=== PATIENT | female | born 1980 | race Two or more races ===

== ENCOUNTER 2019-04-06 16:37 | Inpatient (IN) | payer SELFPAY ==
[~2019-04-06] VITALS: Ht 162.6 cm; Wt 78.0 kg
[2019-04-06] MEDS ORDERED: SODIUM CHLORIDE 0.9% 1,000 ML IVB ONE (16:57)
[2019-04-06] MEDS ORDERED: ONDANSETRON HCL 4 MG/2 ML VIAL IV ONE (17:00)
[2019-04-06 17:20] LABS: Basophils # (auto) 0.1 uL; Eosinophils # (auto) 0 uL; Lymphocytes # (auto) 2.6 uL; White Blood Cell 14.8 10^3/uL (4.4-10.8)
[2019-04-06 17:21] LABS: Basophils % (auto) 0.7 % (0.0-2.0); Hematocrit 41.9 % (36.0-46.0); Hemoglobin 13.9 g/dL (12.2-16.2); Lymphocytes % (auto) 17.7 % (10.0-50.0); Mean Corpuscular Hemoglobin 28.5 pg (28.0-32.0); Mean Corpuscular Hgb Conc. 33.2 g/dL (32.0-36.0); Monocytes # (auto) 0.7 uL; Monocytes % (auto) 4.8 % (0.0-12.0); Neutrophils # (auto) 11.4 uL; Neutrophils % (auto) 76.8 % (37.0-80.0); Platelet Count (auto) 525 10^3/uL (140-450); Red Blood Cells 4.87 10^6/uL (4.0-5.20); Red Cell Distribution Width 14.3 % (11.8-14.3)
[2019-04-06 17:31] LABS: Albumin 3.9 g/dL (3.4-5.0); Calcium 9.2 mg/dL (8.5-10.1); Potassium 3.1 mmol/L (3.5-5.1)
[2019-04-06 17:33] LABS: BUN/Creatinine Ratio 22.4; Bilirubin, Total 1.1 mg/dL (0.2-1.0); Total Protein 8.1 g/dL (6.4-8.2)
[2019-04-06] MEDS ORDERED: POTASSIUM CHL 20MEQ/100ML 100 ML IV ONE (19:45)
[2019-04-06] MEDS ORDERED: DEXTROSE (50%) 50ML SYRG IV PRN (21:45)
[2019-04-06] MEDS ORDERED: cefTRIAXone 1GM/50ML D5W 50 ML IV ONE (21:45)
[2019-04-06] MEDS ORDERED: ACETAMINOPHEN 325 MG TAB PO PRN (21:45)
[2019-04-06] MEDS ORDERED: ONDANSETRON HCL 4 MG/2 ML VIAL IV PRN (21:45)
[2019-04-06] MEDS ORDERED: TEMAZEPAM 15 MG CAP PO PRN (21:45)
[2019-04-06] MEDS: HYDROcodone-ACET 5/325MG TAB PO PRN (22:24)
[2019-04-06] MEDS: PANTOPRAZOLE 40 MG TAB PO SCH (22:26)
[2019-04-06 23:41] LABS: Urine Bacteria MOD /hpf (None Seen); Urine Blood Negative /uL (Negative); Urine Mucus FEW (None Seen); Urine Specific Gravity 1.021 (1.001-1.035); Urine WBC 4 /hpf (0 - 5)
[2019-04-06 23:56] VITALS: BP 165/97
[2019-04-07] VITALS: BP 165/97
[2019-04-07] MEDS: ACCU-CHEK COMFORT CURVE STRIP VI SCH ×3 (00:18→11:50)
[2019-04-07] MEDS: InsuLIN REG 1unit/0.01ml Soln (100units/ml) SC SCH ×3 (00:20→11:50)
[2019-04-07] MEDS ORDERED: METF-370 PO (00:53)
[2019-04-07 04:30] VITALS: BP 103/64
[2019-04-07 05:59] LABS: Basophils # (auto) 0.1 uL; Basophils % (auto) 0.5 % (0.0-2.0); Calcium 8.4 mg/dL (8.5-10.1); Eosinophils # (auto) 0 uL; Eosinophils % (auto) 0.3 % (0.0-7.0); Hemoglobin 12.5 g/dL (12.2-16.2); Lymphocytes # (auto) 4.4 uL; Lymphocytes % (auto) 32.8 % (10.0-50.0); Mean Corpuscular Hemoglobin 29.2 pg (28.0-32.0); Mean Corpuscular Hgb Conc. 33.8 g/dL (32.0-36.0); Mean Corpuscular Volume 86.4 fL (80.0-100.0); Monocytes % (auto) 7.7 % (0.0-12.0); Neutrophils # (auto) 7.9 uL; Neutrophils % (auto) 58.7 % (37.0-80.0); Platelet Count (auto) 437 10^3/uL (140-450); Potassium 3.2 mmol/L (3.5-5.1); Red Blood Cells 4.28 10^6/uL (4.0-5.20); Red Cell Distribution Width 14.5 % (11.8-14.3); White Blood Cell 13.5 10^3/uL (4.4-10.8)
[2019-04-07 06:05] LABS: Albumin 3.2 g/dL (3.4-5.0); BUN/Creatinine Ratio 22.4; Bilirubin, Total 0.9 mg/dL (0.2-1.0); Total Protein 6.8 g/dL (6.4-8.2)
[2019-04-07] MEDS: HYDROcodone-ACET 5/325MG TAB PO PRN (08:55)
[2019-04-07 09:00] VITALS: BP 115/71
[2019-04-07] MEDS ORDERED: cefTRIAXone 1GM/50ML D5W 50 ML IV SCH (09:00)
[2019-04-07] MEDS ORDERED: POTASSIUM CHL 20 Meq TABLET PO ONE (10:45)
[2019-04-07] MEDS: PANTOPRAZOLE 40 MG TAB PO SCH (11:50)
[2019-04-07 13:00] VITALS: BP 117/78
[2019-04-07 17:00] VITALS: BP_SYST 125; BP_SYST 141; BP_DIAS 74; BP_DIAS 96
== END 2019-04-07 17:15 | disposition home or self-care (01) | DRG 638 ==
LOC: ER 16:44 → OVERFLOW 16:45 → EAST 23:31
PROVIDERS: ADMIT Nurse Practitioner; ATTEND Internal Medicine
DX: E11.65 Type 2 diabetes mellitus with hyperglycemia (principal); N39.0 Urinary tract infection, site not specified; E86.0 Dehydration; E66.9 Obesity, unspecified; E87.6 Hypokalemia; D72.829 Elevated white blood cell count, unspecified; D18.09 Hemangioma of other sites; Z83.3 Family history of diabetes mellitus; Z68.29 Body mass index [BMI] 29.0-29.9, adult; Z91.14 Patient's other noncompliance with medication regimen; Z79.899 Other long term (current) drug therapy
CPT/HCPCS: 36415; 74176; 76705; 80053; 81001; 81025; 82962; 83036; 83690; 83735; 85025; 87086; G0378; J0696; J1815; J2405; J3480

== ENCOUNTER 2019-04-12 14:18 | Emergency (ER) | payer SELFPAY ==
[~2019-04-12] VITALS: Ht 162.6 cm; Wt 70.3 kg
[~2019-04-12 14:18] MED LIST: METF-370 PO
[2019-04-12] MEDS ORDERED: SODIUM CHLORIDE 0.9% 1,000 ML IV ONE (15:00)
[2019-04-12] MEDS ORDERED: PROCHLORPERAZINE EDISYLATE 5 MG/ML 2ML VIAL IV ONE (17:15)
[2019-04-12 18:21] LABS: Basophils # (auto) 0.1 uL; Eosinophils # (auto) 0.1 uL; Eosinophils % (auto) 0.4 % (0.0-7.0); Hematocrit 37.9 % (36.0-46.0); Hemoglobin 12.6 g/dL (12.2-16.2); Lymphocytes # (auto) 4.5 uL; Lymphocytes % (auto) 32.3 % (10.0-50.0); Mean Corpuscular Hemoglobin 28.9 pg (28.0-32.0); Mean Corpuscular Hgb Conc. 33.2 g/dL (32.0-36.0); Monocytes # (auto) 0.9 uL; Monocytes % (auto) 6.1 % (0.0-12.0); Neutrophils # (auto) 8.4 uL; Neutrophils % (auto) 60.2 % (37.0-80.0); Nucleated Red Blood Cells % 0.1 %; Platelet Count (auto) 448 10^3/uL (140-450); Red Blood Cells 4.35 10^6/uL (4.0-5.20); Red Cell Distribution Width 14.4 % (11.8-14.3)
[2019-04-12 18:35] LABS: BUN/Creatinine Ratio 11.9; Calcium 8.8 mg/dL (8.5-10.1)
[2019-04-12] MEDS ORDERED: POTASSIUM EFFERVESENT TAB 25 MEQ PO ONE (19:15)
[2019-04-13 01:00] VITALS: BP 115/61
[2019-04-13] MEDS ORDERED: MAGNESIUM CITRATE SOLUTION 300 ML BTL PO ONE (01:45)
== END 2019-04-13 02:06 | disposition home or self-care (01) ==
LOC: ER 14:18
DX: K29.70 Gastritis, unspecified, without bleeding (principal); E11.9 Type 2 diabetes mellitus without complications
CPT/HCPCS: 36415; 74176; 80048; 83690; 84702; 85025; 96361; 96374; 99284; J0780; J7030

== ENCOUNTER 2019-05-03 16:40 | Inpatient (IN) | payer SELFPAY ==
[~2019-05-03] VITALS: Ht 160 cm; Wt 73.0 kg
[2019-05-03 18:04] LABS: Basophils # (auto) 0.1 uL; Basophils % (auto) 0.7 % (0.0-2.0); Eosinophils # (auto) 0 uL; Eosinophils % (auto) 0.1 % (0.0-7.0); Hematocrit 40.6 % (36.0-46.0); Hemoglobin 13.5 g/dL (12.2-16.2); Lymphocytes # (auto) 2.8 uL; Lymphocytes % (auto) 23.5 % (10.0-50.0); Mean Corpuscular Hemoglobin 28.9 pg (28.0-32.0); Mean Corpuscular Hgb Conc. 33.2 g/dL (32.0-36.0); Mean Corpuscular Volume 87.2 fL (80.0-100.0); Monocytes # (auto) 0.6 uL; Monocytes % (auto) 4.8 % (0.0-12.0); Neutrophils # (auto) 8.4 uL; Neutrophils % (auto) 70.9 % (37.0-80.0); Platelet Count (auto) 355 10^3/uL (140-450); Red Blood Cells 4.66 10^6/uL (4.0-5.20); Red Cell Distribution Width 13.9 % (11.8-14.3); White Blood Cell 11.8 10^3/uL (4.4-10.8)
[2019-05-03 18:35] LABS: Albumin 3.7 g/dL (3.4-5.0); BUN/Creatinine Ratio 12.9; Bilirubin, Total 0.8 mg/dL (0.2-1.0); Calcium 8.8 mg/dL (8.5-10.1); Total Protein 7.4 g/dL (6.4-8.2)
[2019-05-03 18:44] LABS: Potassium 2.9 mmol/L (3.5-5.1)
[2019-05-03] MEDS ORDERED: SODIUM CHLORIDE 0.9% 1,000 ML IVB ONE (19:24)
[2019-05-03] MEDS ORDERED: ONDANSETRON HCL 4 MG/2 ML VIAL IV ONE (19:30)
[2019-05-03 19:48] LABS: Magnesium 1.8 mg/dL (1.6-2.6)
[2019-05-03] MEDS ORDERED: MORPHINE SULF INJ 2 MG/ML SYRINGE 1ML IV ONE (22:00)
[2019-05-03] MEDS: PROMETHAZINE HCL 25 MG/ML 1ML IV PRN (22:20)
[2019-05-03] MEDS: POTASSIUM CHL 20MEQ/100ML 100 ML IV SCH (22:20)
[2019-05-03] MEDS ORDERED: ONDANSETRON HCL 4 MG/2 ML VIAL IV PRN (22:45)
[2019-05-03] MEDS ORDERED: ACETAMINOPHEN 500 MG TAB PO PRN (22:45)
[2019-05-03] MEDS ORDERED: DEXTROSE (50%) 50ML SYRG IV PRN (22:45)
[2019-05-03] MEDS: SODIUM CHLORIDE 0.9% 1,000 ML IV SCH (22:53)
[2019-05-03 23:50] VITALS: BP 155/92
--- NOTE | 2019-05-03 23:55 | NUR ---
[facility] admit from ER [facility]U SCHMITT admitted to [facility]. Patient oriented to INEZ TURNER,primary RN, unit, room, bed, and unit policies regarding patient care and visiting hours. Patient weighed by bedscale and encouraged to call if they need something. All questions and concerns addressed, patient verbalized understanding.
--- NOTE | 2019-05-04 | NUR ---
PATIENT AWARE OF NEEDING TO COLLECT URINE SPECIMEN WILL CALL IF NEEDING TO VOID
--- NOTE | 2019-05-04 00:09 | NUR ---
HOSPITALIST PAGED HOSPITALIST PAGED IN REGARDS TO ELEVATED BLOOD PRESSURE AT ADMISSION VITALS SET. NO PRN AVAILABLE BP:164/102, HR: 102BPM
[2019-05-04] MEDS: ACCU-CHEK COMFORT CURVE STRIP VI SCH ×5 (00:23→23:48)
[2019-05-04] MEDS: InsuLIN REG 1unit/0.01ml Soln (100units/ml) SC SCH ×5 (00:23→23:46)
[2019-05-04] MEDS: POTASSIUM CHL 20MEQ/100ML 100 ML IV SCH (00:23)
--- NOTE | 2019-05-04 00:59 | NUR ---
AWAITING CALL BACK FROM HOSPITALIST
--- NOTE | 2019-05-04 02:00 | NUR ---
HOSPITALIST RE PAGED R/T ELEVATED BP AWAITING CALL BACK
[2019-05-04] MEDS: MORPHINE SULF INJ 2 MG/ML SYRINGE 1ML IV PRN ×4 (02:05→21:04)
[2019-05-04] MEDS: PROMETHAZINE HCL 25 MG/ML 1ML IV PRN (02:10)
--- NOTE | 2019-05-04 04:00 | NUR ---
AM BP WNL; SEE VS SPREADSHEET
[2019-05-04 05:00] VITALS: BP 118/62
[2019-05-04 06:09] LABS: Basophils # (auto) 0.1 uL; Eosinophils # (auto) 0 uL; Eosinophils % (auto) 0.3 % (0.0-7.0); Hematocrit 35.6 % (36.0-46.0); Hemoglobin 11.9 g/dL (12.2-16.2); Lymphocytes # (auto) 4.3 uL; Lymphocytes % (auto) 49.3 % (10.0-50.0); Mean Corpuscular Hemoglobin 29.2 pg (28.0-32.0); Mean Corpuscular Hgb Conc. 33.4 g/dL (32.0-36.0); Mean Corpuscular Volume 87.5 fL (80.0-100.0); Monocytes # (auto) 0.6 uL; Monocytes % (auto) 7.1 % (0.0-12.0); Neutrophils # (auto) 3.7 uL; Neutrophils % (auto) 42.3 % (37.0-80.0); Nucleated Red Blood Cells % 0.1 %; Platelet Count (auto) 302 10^3/uL (140-450); Red Blood Cells 4.07 10^6/uL (4.0-5.20); Red Cell Distribution Width 14.1 % (11.8-14.3); White Blood Cell 8.8 10^3/uL (4.4-10.8)
[2019-05-04 06:23] LABS: BUN/Creatinine Ratio 13.6; Calcium 8.1 mg/dL (8.5-10.1); Potassium 3.1 mmol/L (3.5-5.1)
--- NOTE | 2019-05-04 07:52 | NUR ---
RECEIVED REPORT AND ASSUME CARE OF PT. PT RESTING IN BED. NO S/S ACUTE DISTRESS NOTED. UPDATE PT WITH POC.BED AT LOWEST POSITION. CALL LIGHT AND BELONGINGS WITHIN REACH. WILL CONT CONT TO MONITOR.
[2019-05-04 08:50] VITALS: BP 111/73
[2019-05-04] MEDS: PANTOPRAZOLE 40 MG/10 ML VIAL INJ IV SCH (10:06)
[2019-05-04] MEDS: SODIUM CHLORIDE 0.9% 1,000 ML IV SCH (10:08)
[2019-05-04] MEDS ORDERED: POTASSIUM CHLORIDE 60 MEQ, LIDOCAINE 1% (LOCAL ANESTH.) 6 ML in SODIUM CHL 0.9% 500 ML IV ONE (10:15)
[2019-05-04 10:40] LABS: Cholesterol 176 mg/dL (< 200); HDL Cholesterol 37 mg/dL (40-59); LDL Cholesterol 124 mg/dL (< 100); Triglycerides 109 mg/dL (< 150)
[2019-05-04] MEDS: MAGNESIUM SULFATE 1GM/100ML 100 ML IV SCH ×3 (12:03→16:02)
[2019-05-04 13:00] VITALS: BP 113/73
[2019-05-04 13:45] LABS: Urine Bacteria FEW /hpf (None Seen); Urine Blood Negative /uL (Negative); Urine Mucus FEW (None Seen); Urine Specific Gravity 1.007 (1.001-1.035); Urine WBC 14 /hpf (0 - 5)
[2019-05-04 14:00] LABS: Alcohol, Urine < 3.0 mg/dL (0-5); Amphetamine Screen, Urine NEGATIVE (NEGATIVE); Barbiturate Scree,Urine NEGATIVE (NEGATIVE); Benzodiazephine Screen, Urine NEGATIVE (NEGATIVE); Cannabinoid Screen, Urine NEGATIVE (NEGATIVE); Cocaine Screen, Urine NEGATIVE (NEGATIVE); Opiate Scree,Urine POSITIVE (NEGATIVE); Phencyclidine Screen, Urine NEGATIVE (NEGATIVE)
[2019-05-04 17:00] VITALS: BP 115/64
--- NOTE | 2019-05-04 19:20 | NUR ---
PT RESTING IN BED. NO S/S ACUTE DISTRESS NOTED. ENDORSED CARE TO NIGHT NURSE.
--- NOTE | 2019-05-04 20:00 | NUR ---
RECEIVE IN BED WATCHING TV NO VOICED COMPLAINTS
[2019-05-04 21:26] VITALS: BP 111/66
[2019-05-05] MEDS: SODIUM CHLORIDE 0.9% 1,000 ML IV SCH (01:09)
[2019-05-05] MEDS: MORPHINE SULF INJ 2 MG/ML SYRINGE 1ML IV PRN (04:19)
[2019-05-05 05:14] VITALS: BP 109/71
[2019-05-05] MEDS: InsuLIN REG 1unit/0.01ml Soln (100units/ml) SC SCH ×2 (06:00→12:00)
[2019-05-05] MEDS: ACCU-CHEK COMFORT CURVE STRIP VI SCH ×2 (06:00→12:59)
[2019-05-05 06:38] LABS: Calcium 8.1 mg/dL (8.5-10.1); Potassium 3.4 mmol/L (3.5-5.1)
[2019-05-05 06:42] LABS: BUN/Creatinine Ratio 9.1; Magnesium 2.1 mg/dL (1.6-2.6)
--- NOTE | 2019-05-05 07:35 | NUR ---
Opening Shift Note Assumed care of patient, awake and alert. No S/S of distress/SOB or pain. Instructed on POC and to call for assist PRN, will continue to monitor for changes. For patient safety the bed is locked, in its lowest position with 2 side rails up in position.
[2019-05-05 09:00] VITALS: BP 113/61
[2019-05-05] MEDS: PANTOPRAZOLE 40 MG/10 ML VIAL INJ IV SCH (10:36)
[2019-05-05] MEDS ORDERED: POTASSIUM CHL 20 Meq TABLET PO ONE (11:15)
[2019-05-05 13:00] VITALS: BP 152/82
[2019-05-05 14:34] VITALS: BP 152/82
[2019-05-05 16:49] VITALS: BP 130/78
== END 2019-05-05 16:40 | disposition home or self-care (01) | DRG 392 ==
LOC: ER 16:40 → OVERFLOW 16:41 → WEST WING 05-04 00:05
PROVIDERS: ADMIT Nurse Practitioner Family; ATTEND Internal Medicine
DX: K52.9 Noninfective gastroenteritis and colitis, unspecified (principal); N39.0 Urinary tract infection, site not specified; E11.65 Type 2 diabetes mellitus with hyperglycemia; E78.5 Hyperlipidemia, unspecified; E87.6 Hypokalemia; Z79.84 Long term (current) use of oral hypoglycemic drugs; Z82.49 Family history of ischemic heart disease and other diseases of the circulatory system; Z83.3 Family history of diabetes mellitus
CPT/HCPCS: 36415; 74176; 76705; 80048; 80053; 80061; 80307; 81001; 82150; 82962; 83036; 83690; 83735; 84443; 84702; 85025; 87086; 87088; 87186; 96361; 96374; 96375; C9113; G0378; J1815; J2001; J2405; J3480

== ENCOUNTER 2019-05-09 15:50 | Emergency (ER) | payer SELFPAY ==
[~2019-05-09] VITALS: Ht 162.6 cm; Wt 72.6 kg
[2019-05-09 17:09] LABS: Basophils # (auto) 0.1 uL; Basophils % (auto) 0.6 % (0.0-2.0); Eosinophils # (auto) 0 uL; Eosinophils % (auto) 0.1 % (0.0-7.0); Hematocrit 41.5 % (36.0-46.0); Hemoglobin 14.1 g/dL (12.2-16.2); Lymphocytes # (auto) 2.8 uL; Lymphocytes % (auto) 28.1 % (10.0-50.0); Mean Corpuscular Hemoglobin 29.5 pg (28.0-32.0); Mean Corpuscular Hgb Conc. 33.9 g/dL (32.0-36.0); Monocytes # (auto) 0.7 uL; Monocytes % (auto) 6.9 % (0.0-12.0); Neutrophils # (auto) 6.4 uL; Neutrophils % (auto) 64.3 % (37.0-80.0); Nucleated Red Blood Cells % 0.1 %; Platelet Count (auto) 392 10^3/uL (140-450); Red Blood Cells 4.77 10^6/uL (4.0-5.20); Red Cell Distribution Width 14.6 % (11.8-14.3)
[2019-05-09 17:23] LABS: Albumin 4.1 g/dL (3.4-5.0); Calcium 9.3 mg/dL (8.5-10.1); Potassium 3.1 mmol/L (3.5-5.1)
[2019-05-09 17:26] LABS: BUN/Creatinine Ratio 9.7; Bilirubin, Total 1.3 mg/dL (0.2-1.0); Total Protein 7.8 g/dL (6.4-8.2)
[2019-05-09] MEDS ORDERED: MORPHINE SULFATE 4 MG/ML SYR/VIAL IV ONE (19:30)
[2019-05-09] MEDS ORDERED: ONDANSETRON HCL 4 MG/2 ML VIAL IV ONE (19:30)
[2019-05-09 21:37] LABS: Urine Bacteria FEW /hpf (None Seen); Urine Blood Negative /uL (Negative); Urine Hyaline Cast FEW /lpf (0 - 2); Urine WBC 22 /hpf (0 - 5)
[2019-05-10] MEDS ORDERED: MORPHINE SULFATE 4 MG/ML SYR/VIAL IV ONE (00:45)
[2019-05-10] MEDS ORDERED: PROMETHAZINE HCL 25 MG/ML 1ML IV ONE (00:45)
[2019-05-10 01:55] VITALS: BP 106/58
== END 2019-05-10 02:10 | disposition home or self-care (01) ==
LOC: ER 15:57
DX: R10.84 Generalized abdominal pain (principal); R11.2 Nausea with vomiting, unspecified; E11.9 Type 2 diabetes mellitus without complications
CPT/HCPCS: 36415; 74176; 80053; 81001; 82962; 84702; 85025; 96374; 96375; 96376; 99284; J2270; J2405; J2550

== ENCOUNTER 2019-05-24 22:18 | Inpatient (IN) | payer SELFPAY ==
[~2019-05-24] VITALS: Ht 154.9 cm; Wt 71.8 kg
[2019-05-24] MEDS ORDERED: SODIUM CHLORIDE 0.9% 500 ML IV ONE (23:52)
[2019-05-25 00:02] LABS: Basophils # (auto) 0.1 uL; Basophils % (auto) 0.8 % (0.0-2.0); Eosinophils # (auto) 0 uL; Hematocrit 36.7 % (36.0-46.0); Hemoglobin 12.8 g/dL (12.2-16.2); Lymphocytes # (auto) 0.8 uL; Lymphocytes % (auto) 9.7 % (10.0-50.0); Mean Corpuscular Hemoglobin 29.3 pg (28.0-32.0); Mean Corpuscular Hgb Conc. 34.8 g/dL (32.0-36.0); Mean Corpuscular Volume 84.3 fL (80.0-100.0); Monocytes # (auto) 0.2 uL; Monocytes % (auto) 2.3 % (0.0-12.0); Neutrophils # (auto) 7.4 uL; Neutrophils % (auto) 87.2 % (37.0-80.0); Platelet Count (auto) 340 10^3/uL (140-450); Red Blood Cells 4.36 10^6/uL (4.0-5.20); Red Cell Distribution Width 14.3 % (11.8-14.3); White Blood Cell 8.5 10^3/uL (4.4-10.8)
[2019-05-25 00:19] LABS: Albumin 3.5 g/dL (3.4-5.0); Calcium 8.7 mg/dL (8.5-10.1); Potassium 3.4 mmol/L (3.5-5.1)
[2019-05-25 00:21] LABS: BUN/Creatinine Ratio 10.6
[2019-05-25 00:24] LABS: Bilirubin, Total 0.5 mg/dL (0.2-1.0); Total Protein 7.1 g/dL (6.4-8.2)
[2019-05-25 01:10] LABS: Urine Amorphous Crystal FEW /hpf (None Seen); Urine Bacteria FEW /hpf (None Seen); Urine Blood 3+ /uL (Negative); Urine Hyaline Cast FEW /lpf (0 - 2); Urine Mucus FEW (None Seen); Urine WBC 2 /hpf (0 - 5)
[2019-05-25] MEDS ORDERED: cefTRIAXone 1GM/50ML D5W 50 ML IV ONE ×2 (01:45→05:45)
[2019-05-25] MEDS ORDERED: MORPHINE SULFATE 4 MG/ML SYR/VIAL IV ONE (01:45)
[2019-05-25] MEDS ORDERED: ONDANSETRON HCL 4 MG/2 ML VIAL IV ONE ×2 (01:45)
[2019-05-25 04:32] LABS: Alcohol, Urine < 3.0 mg/dL (0-5); Amphetamine Screen, Urine NEGATIVE (NEGATIVE); Barbiturate Scree,Urine NEGATIVE (NEGATIVE); Benzodiazephine Screen, Urine NEGATIVE (NEGATIVE); Cannabinoid Screen, Urine NEGATIVE (NEGATIVE); Cocaine Screen, Urine NEGATIVE (NEGATIVE); Opiate Scree,Urine NEGATIVE (NEGATIVE); Phencyclidine Screen, Urine NEGATIVE (NEGATIVE)
[2019-05-25] MEDS ORDERED: HYDROcodone-ACET 5/325MG TAB PO ONE (05:30)
[2019-05-25] MEDS ORDERED: DOCUSATE SOD 100 MG CAP PO PRN (07:00)
[2019-05-25] MEDS ORDERED: LORazepam 0.5 MG TAB PO PRN (07:00)
[2019-05-25] MEDS ORDERED: DEXTROSE (50%) 50ML SYRG IV PRN (07:00)
[2019-05-25] MEDS: SODIUM CHLORIDE 0.9% 1,000 ML IV SCH ×2 (07:04→20:19)
[2019-05-25 07:29] LABS: BUN/Creatinine Ratio 7.3; Calcium 8.4 mg/dL (8.5-10.1); Potassium 3.4 mmol/L (3.5-5.1)
[2019-05-25 08:20] VITALS: BP 152/76
[2019-05-25] MEDS: ONDANSETRON HCL 4 MG/2 ML VIAL IV PRN ×2 (09:20→16:25)
[2019-05-25] MEDS: cefTRIAXone 1GM/50ML D5W 50 ML IV SCH (10:18)
[2019-05-25] MEDS: InsuLIN REG 1unit/0.01ml Soln (100units/ml) SC SCH ×2 (12:13→18:03)
[2019-05-25] MEDS: ACCU-CHEK COMFORT CURVE STRIP VI SCH ×2 (12:13→18:04)
[2019-05-25] MEDS: ACETAMINOPHEN 325 MG TAB PO PRN (12:32)
[2019-05-25 13:00] VITALS: BP 103/64
[2019-05-25] MEDS ORDERED: POTASSIUM CHL 20 Meq TABLET PO ONE (15:00)
[2019-05-25] MEDS: MORPHINE SULF INJ 2 MG/ML SYRINGE 1ML IV PRN (16:26)
[2019-05-25 17:00] VITALS: BP 153/63
[2019-05-25 22:00] VITALS: BP 125/59
[2019-05-26] MEDS: ONDANSETRON HCL 4 MG/2 ML VIAL IV PRN ×4 (00:12→18:13)
[2019-05-26] MEDS: MORPHINE SULF INJ 2 MG/ML SYRINGE 1ML IV PRN ×2 (00:12→09:06)
[2019-05-26] MEDS: InsuLIN REG 1unit/0.01ml Soln (100units/ml) SC SCH ×5 (00:14→21:46)
[2019-05-26] MEDS: ACCU-CHEK COMFORT CURVE STRIP VI SCH ×5 (00:15→21:46)
[2019-05-26 04:52] VITALS: BP 110/60
[2019-05-26 06:09] LABS: Basophils # (auto) 0 uL; Basophils % (auto) 0.3 % (0.0-2.0); Eosinophils # (auto) 0 uL; Eosinophils % (auto) 0.3 % (0.0-7.0); Hematocrit 34.5 % (36.0-46.0); Hemoglobin 11.7 g/dL (12.2-16.2); Lymphocytes # (auto) 3.4 uL; Lymphocytes % (auto) 43.8 % (10.0-50.0); Mean Corpuscular Hemoglobin 29.8 pg (28.0-32.0); Mean Corpuscular Volume 87.6 fL (80.0-100.0); Monocytes # (auto) 0.6 uL; Monocytes % (auto) 7.9 % (0.0-12.0); Neutrophils # (auto) 3.7 uL; Neutrophils % (auto) 47.7 % (37.0-80.0); Nucleated Red Blood Cells % 0.1 %; Platelet Count (auto) 306 10^3/uL (140-450); Red Blood Cells 3.94 10^6/uL (4.0-5.20); Red Cell Distribution Width 14.5 % (11.8-14.3); White Blood Cell 7.7 10^3/uL (4.4-10.8)
[2019-05-26 06:25] LABS: Potassium 3.5 mmol/L (3.5-5.1)
[2019-05-26 06:31] LABS: BUN/Creatinine Ratio 7.8; Calcium 8.3 mg/dL (8.5-10.1); Magnesium 2.4 mg/dL (1.6-2.6)
[2019-05-26 08:18] VITALS: BP 100/59
[2019-05-26 09:00] VITALS: BP 100/59
[2019-05-26] MEDS: SODIUM CHLORIDE 0.9% 1,000 ML IV SCH ×2 (09:05→10:59)
[2019-05-26] MEDS: cefTRIAXone 1GM/50ML D5W 50 ML IV SCH (09:05)
[2019-05-26] MEDS ORDERED: DEXTROSE (50%) 50ML SYRG IV PRN (10:15)
[2019-05-26] MEDS ORDERED: POTASSIUM CHL 20MEQ/100ML 100 ML IV ONE (10:15)
[2019-05-26] MEDS ORDERED: PANTOPRAZOLE 40 MG/10 ML VIAL INJ IV ONE (10:15)
[2019-05-26 13:00] VITALS: BP 162/79
[2019-05-26] MEDS ORDERED: GOLYTELY 4L KIT PO ONE (13:30)
[2019-05-26] MEDS: KETOROLAC TROMETH 30 MG/ML 1ML VIAL IV PRN ×2 (13:56→19:45)
[2019-05-26 15:03] LABS: INR 1.03 (0.9-1.15)
[2019-05-26 17:00] VITALS: BP 168/84
[2019-05-26] MEDS: HYOSCYAMINE SULF 0.125 MG ODT TAB PO PRN (19:45)
[2019-05-26] MEDS ORDERED: PROMETHAZINE HCL 25 MG/ML 1ML IV ONE (21:15)
[2019-05-26] MEDS: PANTOPRAZOLE 40 MG/10 ML VIAL INJ IV SCH (21:46)
[2019-05-26 22:00] VITALS: BP 157/87
[2019-05-26] MEDS ORDERED: MORPHINE SULF INJ 2 MG/ML SYRINGE 1ML IV ONE (22:00)
[2019-05-27] MEDS: SODIUM CHLORIDE 0.9% 1,000 ML IV SCH ×2 (00:31→17:19)
[2019-05-27 05:00] VITALS: BP 105/51
[2019-05-27] MEDS: InsuLIN REG 1unit/0.01ml Soln (100units/ml) SC SCH ×4 (07:00→22:00)
[2019-05-27 08:00] VITALS: BP 113/64
[2019-05-27] MEDS: ACCU-CHEK COMFORT CURVE STRIP VI SCH ×4 (08:19→22:00)
[2019-05-27] MEDS: POTASSIUM CHL 20MEQ/100ML 100 ML IV SCH ×2 (08:56→10:42)
[2019-05-27 09:07] VITALS: BP 113/64
[2019-05-27] MEDS: PANTOPRAZOLE 40 MG/10 ML VIAL INJ IV SCH ×2 (10:40→22:33)
[2019-05-27] MEDS: cefTRIAXone 1GM/50ML D5W 50 ML IV SCH (10:41)
[2019-05-27] MEDS ORDERED: ONDANSETRON HCL 4 MG/2 ML VIAL ONE (12:58)
[2019-05-27] MEDS ORDERED: PROPOFOL 10 MG/ML 20 ML IV ONE (12:58)
[2019-05-27] MEDS ORDERED: fentaNYL CITRATE 100 MCG/2 ML VL ONE (12:58)
[2019-05-27] MEDS ORDERED: SODIUM CHLORIDE LOCK 10 ML ONE (12:58)
[2019-05-27] MEDS ORDERED: MIDAZOLAM HCL 1MG/1ML-2 ML VIAL ONE (12:58)
[2019-05-27] MEDS ORDERED: MORPHINE SULFATE 4 MG/ML SYR/VIAL IV PRN (14:00)
[2019-05-27] MEDS ORDERED: METOCLOPRAMIDE HCL 5MG/ml INJ 2ml VIAL IV PRN (14:00)
[2019-05-27] MEDS ORDERED: HYDROmorphone HCL 2 MG/ML VL IV PRN (14:00)
[2019-05-27] MEDS ORDERED: fentaNYL CITRATE 100 MCG/2 ML VL IV PRN (14:00)
[2019-05-27] MEDS ORDERED: KETOROLAC TROMETH 30 MG/ML 1ML VIAL IV ONE (14:00)
[2019-05-27 17:00] VITALS: BP 177/91
[2019-05-27] MEDS: KETOROLAC TROMETH 30 MG/ML 1ML VIAL IV PRN (17:19)
[2019-05-27] MEDS: ONDANSETRON HCL 4 MG/2 ML VIAL IV PRN ×2 (17:20→22:33)
[2019-05-27] MEDS: HYOSCYAMINE SULF 0.125 MG ODT TAB PO PRN ×2 (17:21→22:33)
[2019-05-27] MEDS ORDERED: POTASSIUM CHLORIDE 40 MEQ, LIDOCAINE 1% (LOCAL ANESTH.) 4 ML in SODIUM CHL 0.9% 100 ML IV ONE (18:15)
[2019-05-27] MEDS ORDERED: MAGNESIUM SULFATE 1GM/100ML 100 ML IV ONE (18:15)
[2019-05-27] MEDS: SOD CHL 0.9%/ KCL 40MEQ 1,000 ML IV SCH (18:39)
[2019-05-27] MEDS ORDERED: HYDROcodone-ACET 7.5/325MG TAB PO ONE (20:45)
[2019-05-27 22:00] VITALS: BP 177/86
[2019-05-28] VITALS (8 sets, daily range): BP systolic 106–164; BP diastolic 71–96
[2019-05-28] MEDS: KETOROLAC TROMETH 30 MG/ML 1ML VIAL IV PRN ×3 (03:04→22:30)
[2019-05-28] MEDS: ONDANSETRON HCL 4 MG/2 ML VIAL IV PRN ×2 (05:53→15:52)
[2019-05-28 05:54] LABS: Basophils # (auto) 0 uL; Basophils % (auto) 0.6 % (0.0-2.0); Eosinophils # (auto) 0 uL; Eosinophils % (auto) 0.1 % (0.0-7.0); Hematocrit 33.3 % (36.0-46.0); Hemoglobin 11.9 g/dL (12.2-16.2); Lymphocytes # (auto) 1.1 uL; Lymphocytes % (auto) 18.5 % (10.0-50.0); Mean Corpuscular Hemoglobin 29.8 pg (28.0-32.0); Mean Corpuscular Hgb Conc. 35.7 g/dL (32.0-36.0); Mean Corpuscular Volume 83.5 fL (80.0-100.0); Monocytes # (auto) 0.7 uL; Monocytes % (auto) 11.5 % (0.0-12.0); Neutrophils % (auto) 69.3 % (37.0-80.0); Platelet Count (auto) 318 10^3/uL (140-450); Red Blood Cells 3.99 10^6/uL (4.0-5.20); Red Cell Distribution Width 13.9 % (11.8-14.3); White Blood Cell 5.8 10^3/uL (4.4-10.8)
[2019-05-28 06:15] LABS: Calcium 8.2 mg/dL (8.5-10.1); Magnesium 2.2 mg/dL (1.6-2.6)
[2019-05-28 06:23] LABS: BUN/Creatinine Ratio 10.5
[2019-05-28 06:28] LABS: Potassium 2.9 mmol/L (3.5-5.1)
[2019-05-28] MEDS: InsuLIN REG 1unit/0.01ml Soln (100units/ml) SC SCH ×4 (06:46→22:00)
[2019-05-28] MEDS: ACCU-CHEK COMFORT CURVE STRIP VI SCH ×4 (06:46→22:42)
[2019-05-28] MEDS: SOD CHL 0.9%/ KCL 40MEQ 1,000 ML IV SCH ×2 (08:33→23:12)
[2019-05-28] MEDS ORDERED: LACTULOSE 20Gm/30ML SOLN PO ONE (10:00)
[2019-05-28] MEDS ORDERED: POTASSIUM CHL 20 Meq TABLET PO ONE ×2 (10:00→14:30)
[2019-05-28] MEDS ORDERED: HYOS0.1297 PO (10:02)
[2019-05-28] MEDS ORDERED: DOCU-94 PO (10:02)
[2019-05-28] MEDS ORDERED: ONDA-144 PO (10:05)
[2019-05-28] MEDS: PANTOPRAZOLE 40 MG/10 ML VIAL INJ IV SCH ×2 (10:07→22:41)
[2019-05-28] MEDS: cefTRIAXone 1GM/50ML D5W 50 ML IV SCH (10:07)
[2019-05-28] MEDS: HYOSCYAMINE SULF 0.125 MG ODT TAB PO PRN (18:14)
[2019-05-28] MEDS: PROMETHAZINE HCL 25 MG/ML 1ML IV PRN (20:18)
[2019-05-29] VITALS (7 sets, daily range): BP systolic 126–182; BP diastolic 78–104
[2019-05-29] MEDS: PROMETHAZINE HCL 25 MG/ML 1ML IV PRN ×3 (03:13→19:23)
[2019-05-29] MEDS: InsuLIN REG 1unit/0.01ml Soln (100units/ml) SC SCH ×4 (06:44→22:00)
[2019-05-29] MEDS: ACCU-CHEK COMFORT CURVE STRIP VI SCH ×4 (06:44→22:10)
[2019-05-29] MEDS: KETOROLAC TROMETH 30 MG/ML 1ML VIAL IV PRN (06:49)
[2019-05-29] MEDS: PANTOPRAZOLE 40 MG/10 ML VIAL INJ IV SCH (09:58)
[2019-05-29] MEDS: cefTRIAXone 1GM/50ML D5W 50 ML IV SCH (09:58)
[2019-05-29] MEDS ORDERED: hydrALAZINE HCL 20 MG/ML VL IV PRN (13:45)
[2019-05-29] MEDS ORDERED: LISINOPRIL 10 MG TAB PO ONE (13:45)
[2019-05-29] MEDS: ACETAMINOPHEN 325 MG TAB PO PRN (15:21)
[2019-05-29] MEDS: D5W/SOD CHLO 0.9% 1,000 ML IV SCH (19:23)
[2019-05-29] MEDS: NAPROXEN 500 MG TAB PO SCH (22:10)
[2019-05-30 04:59] VITALS: BP 103/50
[2019-05-30] MEDS: D5W/SOD CHLO 0.9% 1,000 ML IV SCH (06:25)
[2019-05-30] MEDS: InsuLIN REG 1unit/0.01ml Soln (100units/ml) SC SCH ×2 (06:39→11:30)
[2019-05-30] MEDS: PROMETHAZINE HCL 25 MG/ML 1ML IV PRN ×2 (06:39→13:57)
[2019-05-30] MEDS: ACCU-CHEK COMFORT CURVE STRIP VI SCH ×2 (06:39→11:56)
[2019-05-30 07:06] LABS: Hematocrit 37.3 % (36.0-46.0); Hemoglobin 12.9 g/dL (12.2-16.2); Mean Corpuscular Hemoglobin 29.3 pg (28.0-32.0); Mean Corpuscular Hgb Conc. 34.6 g/dL (32.0-36.0); Mean Corpuscular Volume 84.8 fL (80.0-100.0); Platelet Count (auto) 324 10^3/uL (140-450); Red Blood Cells 4.39 10^6/uL (4.0-5.20); Red Cell Distribution Width 14.3 % (11.8-14.3); White Blood Cell 5.5 10^3/uL (4.4-10.8)
[2019-05-30 07:09] LABS: Band Neutrophils % (manual) 0; Basophils % (manual) 0 (0.0-2.0); Blast Cells 0; Eosinophils % (manual) 0 (0-7); Metamyelocytes % 0; Myelocytes % 0; Promyelocytes % 0; Reactive Lymphocytes 0
[2019-05-30 07:53] LABS: Lymphocytes % (manual) 64 (10.0-50.0); Monocytes % (manual) 9 (0-12)
[2019-05-30 07:57] LABS: Calcium 8.4 mg/dL (8.5-10.1); Magnesium 2.2 mg/dL (1.6-2.6); Potassium 3.3 mmol/L (3.5-5.1)
[2019-05-30 08:00] VITALS: BP 112/79
[2019-05-30 08:33] LABS: BUN/Creatinine Ratio 12.5
[2019-05-30 09:00] VITALS: BP 112/79
[2019-05-30] MEDS ORDERED: LISINOPRIL 10 MG TAB PO SCH (10:00)
[2019-05-30] MEDS ORDERED: FAMOTIDINE 20 MG TAB PO SCH (10:00)
[2019-05-30] MEDS: NAPROXEN 500 MG TAB PO SCH (10:16)
[2019-05-30 13:00] VITALS: BP 98/55
[2019-05-30] MEDS ORDERED: POTASSIUM CHL 20 Meq TABLET PO ONE (14:45)
[2019-05-30 17:12] VITALS: BP_SYST 154; BP_SYST 182; BP_DIAS 112; BP_DIAS 90
== END 2019-05-30 17:10 | disposition home or self-care (01) | DRG 392 ==
LOC: ER 22:23 → OVERFLOW 22:24 → WEST WING 05-25 08:49
PROVIDERS: ADMIT Hospitalist; ATTEND Internal Medicine
PROC: 0DJD8ZZ Inspection of Lower Intestinal Tract, Via Natural or Artificial Opening Endoscopic (ICD-10-PCS; 2019-05-27)
PROC: 0DB68ZX Excision of Stomach, Via Natural or Artificial Opening Endoscopic, Diagnostic (ICD-10-PCS; principal; 2019-05-27 13:25)
DX: K58.9 Irritable bowel syndrome, unspecified (principal); N30.90 Cystitis, unspecified without hematuria; E10.65 Type 1 diabetes mellitus with hyperglycemia; E78.5 Hyperlipidemia, unspecified; E87.6 Hypokalemia; I10 Essential (primary) hypertension; K82.8 Other specified diseases of gallbladder; K80.20 Calculus of gallbladder without cholecystitis without obstruction; N92.0 Excessive and frequent menstruation with regular cycle; E66.01 Morbid (severe) obesity due to excess calories; N94.6 Dysmenorrhea, unspecified; Z79.4 Long term (current) use of insulin; Z82.49 Family history of ischemic heart disease and other diseases of the circulatory system; Z83.3 Family history of diabetes mellitus; Z98.51 Tubal ligation status; Z79.899 Other long term (current) drug therapy; Z68.29 Body mass index [BMI] 29.0-29.9, adult
CPT/HCPCS: 36415; 43239; 45378; 74176; 76705; 76856; 78226; 80048; 80053; 80307; 81001; 81025; 82962; 83036; 83690; 83735; 84132; 84443; 84702; 85007; 85025; 85027; 85610; 87081; 87086; 96361; 96365; 96375; C9113; G0378; J0696; J1815; J1885; J2001; J2250; J2405; J2704; J3480; J7042

== ENCOUNTER 2019-06-19 20:22 | Emergency (ER) | payer SELFPAY ==
[~2019-06-19] VITALS: Ht 162.6 cm; Wt 65.9 kg
[~2019-06-19 20:22] MED LIST changes: +DOCU-94 PO; +HYOS0.1297 PO; +ONDA-144 PO
[2019-06-19 22:07] LABS: Basophils # (auto) 0 uL; Basophils % (auto) 0.6 % (0.0-2.0); Eosinophils # (auto) 0.1 uL; Eosinophils % (auto) 0.7 % (0.0-7.0); Hematocrit 36.9 % (36.0-46.0); Hemoglobin 12.5 g/dL (12.2-16.2); Lymphocytes # (auto) 3.5 uL; Lymphocytes % (auto) 42.6 % (10.0-50.0); Mean Corpuscular Hemoglobin 29.6 pg (28.0-32.0); Mean Corpuscular Hgb Conc. 33.9 g/dL (32.0-36.0); Mean Corpuscular Volume 87.4 fL (80.0-100.0); Monocytes # (auto) 0.6 uL; Monocytes % (auto) 7.1 % (0.0-12.0); Platelet Count (auto) 327 10^3/uL (140-450); Red Blood Cells 4.22 10^6/uL (4.0-5.20); Red Cell Distribution Width 14.1 % (11.8-14.3); White Blood Cell 8.1 10^3/uL (4.4-10.8)
[2019-06-19 22:23] LABS: Albumin 3.7 g/dL (3.4-5.0)
[2019-06-19 22:27] LABS: BUN/Creatinine Ratio 12.3; Bilirubin, Total 0.9 mg/dL (0.2-1.0); Total Protein 7.1 g/dL (6.4-8.2)
[2019-06-19 22:33] LABS: Potassium 2.9 mmol/L (3.5-5.1)
[2019-06-19 23:44] LABS: Urine WBC None Seen /hpf (0 - 5)
[2019-06-20 00:02] LABS: Urine Bacteria MOD /hpf (None Seen); Urine Blood 2+ /uL (Negative); Urine Hyaline Cast MANY /lpf (0 - 2); Urine Mucus FEW (None Seen); Urine Specific Gravity 1.024 (1.001-1.035)
[2019-06-20] MEDS ORDERED: SODIUM CHLORIDE 0.9% 1,000 ML IV ONE (01:30)
[2019-06-20] MEDS ORDERED: MORPHINE SULFATE 4 MG/ML SYR/VIAL IV ONE (01:30)
[2019-06-20] MEDS ORDERED: ONDANSETRON HCL 4 MG/2 ML VIAL IV ONE (01:30)
[2019-06-20] MEDS ORDERED: IOHEXOL 300 MG/ML 100ML BOTTLE IJ ONE (01:46)
[2019-06-20 05:37] VITALS: BP 107/59
== END 2019-06-20 06:00 | disposition home or self-care (01) ==
LOC: ER 20:24
DX: N39.0 Urinary tract infection, site not specified (principal); K42.9 Umbilical hernia without obstruction or gangrene; K55.059 Acute (reversible) ischemia of intestine, part and extent unspecified; R11.2 Nausea with vomiting, unspecified
CPT/HCPCS: 36415; 74177; 80053; 81001; 81025; 82150; 83690; 85025; 96361; 96374; 96375; 99284; J2270; J2405; J7030; Q9967

== ENCOUNTER 2019-06-29 20:51 | Emergency (ER) | payer SELFPAY ==
[~2019-06-29] VITALS: Ht 162.6 cm; Wt 71.7 kg
[2019-06-29 22:31] LABS: Basophils # (auto) 0 uL; Basophils % (auto) 0.6 % (0.0-2.0); Eosinophils # (auto) 0 uL; Eosinophils % (auto) 0.1 % (0.0-7.0); Hematocrit 39.3 % (36.0-46.0); Hemoglobin 13.4 g/dL (12.2-16.2); Lymphocytes % (auto) 24.7 % (10.0-50.0); Mean Corpuscular Hemoglobin 29.9 pg (28.0-32.0); Mean Corpuscular Hgb Conc. 34.2 g/dL (32.0-36.0); Mean Corpuscular Volume 87.5 fL (80.0-100.0); Monocytes # (auto) 0.4 uL; Monocytes % (auto) 4.5 % (0.0-12.0); Neutrophils # (auto) 5.8 uL; Neutrophils % (auto) 70.1 % (37.0-80.0); Nucleated Red Blood Cells % 0.1 %; Platelet Count (auto) 460 10^3/uL (140-450); Red Blood Cells 4.49 10^6/uL (4.0-5.20); Red Cell Distribution Width 14.8 % (11.8-14.3); White Blood Cell 8.2 10^3/uL (4.4-10.8)
[2019-06-29 22:56] LABS: Calcium 9.3 mg/dL (8.5-10.1)
[2019-06-29 22:59] LABS: BUN/Creatinine Ratio 10.9; Bilirubin, Total 0.6 mg/dL (0.2-1.0)
[2019-06-30 00:15] LABS: Urine Bacteria NONE SEEN /hpf (None Seen); Urine Blood Negative /uL (Negative); Urine Hyaline Cast FEW /lpf (0 - 2); Urine Mucus FEW (None Seen); Urine Specific Gravity 1.019 (1.001-1.035); Urine WBC 1 /hpf (0 - 5)
[2019-06-30] MEDS ORDERED: ONDANSETRON HCL 4 MG/2 ML VIAL IV ONE (03:00)
[2019-06-30] MEDS ORDERED: MORPHINE SULFATE 4 MG/ML SYR/VIAL IV ONE (03:00)
[2019-06-30] MEDS ORDERED: SODIUM CHLORIDE 0.9% 2,000 ML IV ONE (03:00)
[2019-06-30] MEDS ORDERED: POTASSIUM EFFERVESENT TAB 25 MEQ PO ONE (03:00)
[2019-06-30 05:29] VITALS: BP 102/62
== END 2019-06-30 05:25 | disposition home or self-care (01) ==
LOC: ER 20:54
DX: R10.84 Generalized abdominal pain (principal); R11.2 Nausea with vomiting, unspecified; E11.9 Type 2 diabetes mellitus without complications; Z98.51 Tubal ligation status
CPT/HCPCS: 36415; 74176; 80053; 81001; 81025; 83690; 85025; 96361; 96374; 96375; 99284; J2270; J2405; J7030

== ENCOUNTER 2019-07-03 15:10 | Inpatient (IN) | payer SELFPAY ==
[~2019-07-03] VITALS: Ht 162.6 cm; Wt 71.8 kg
[2019-07-03] MEDS ORDERED: SODIUM CHLORIDE 0.9% 1,000 ML IV ONE (15:26)
[2019-07-03] MEDS ORDERED: PANTOPRAZOLE 40 MG/10 ML VIAL INJ IV ONE (15:30)
[2019-07-03] MEDS ORDERED: MORPHINE SULFATE 4 MG/ML SYR/VIAL IV ONE (15:30)
[2019-07-03] MEDS ORDERED: PROCHLORPERAZINE EDISYLATE 5 MG/ML 2ML VIAL IV ONE (15:30)
[2019-07-03 16:08] LABS: Basophils # (auto) 0.1 uL; Basophils % (auto) 0.8 % (0.0-2.0); Eosinophils # (auto) 0 uL; Eosinophils % (auto) 0.4 % (0.0-7.0); Hematocrit 37.5 % (36.0-46.0); Hemoglobin 12.7 g/dL (12.2-16.2); Lymphocytes # (auto) 3.2 uL; Lymphocytes % (auto) 44.9 % (10.0-50.0); Mean Corpuscular Hemoglobin 29.9 pg (28.0-32.0); Mean Corpuscular Hgb Conc. 33.9 g/dL (32.0-36.0); Mean Corpuscular Volume 88.4 fL (80.0-100.0); Monocytes # (auto) 0.5 uL; Neutrophils # (auto) 3.3 uL; Neutrophils % (auto) 46.9 % (37.0-80.0); Platelet Count (auto) 437 10^3/uL (140-450); Red Blood Cells 4.24 10^6/uL (4.0-5.20); Red Cell Distribution Width 15.6 % (11.8-14.3); White Blood Cell 7.1 10^3/uL (4.4-10.8)
[2019-07-03 16:24] LABS: Albumin 3.6 g/dL (3.4-5.0); Calcium 9.2 mg/dL (8.5-10.1)
[2019-07-03 16:27] LABS: BUN/Creatinine Ratio 7.4; Bilirubin, Total 0.7 mg/dL (0.2-1.0)
[2019-07-03 16:37] LABS: Potassium 2.6 mmol/L (3.5-5.1)
[2019-07-03] MEDS ORDERED: POTASSIUM CHL 20 Meq TABLET PO ONE (17:00)
[2019-07-03] MEDS ORDERED: POTASSIUM CHL 20MEQ/100ML 100 ML IV ONE (17:00)
[2019-07-03] MEDS ORDERED: HYDROcodone-ACET 5/325MG TAB PO PRN (22:45)
[2019-07-03] MEDS ORDERED: ACETAMINOPHEN 325 MG TAB PO PRN (22:45)
[2019-07-03] MEDS ORDERED: DEXTROSE (50%) 50ML SYRG IV PRN (22:45)
[2019-07-03 23:05] VITALS: BP 104/67
[2019-07-03] MEDS: ONDANSETRON HCL 4 MG/2 ML VIAL IV PRN (23:27)
[2019-07-03] MEDS: MORPHINE SULFATE 4 MG/ML SYR/VIAL IV PRN (23:28)
[2019-07-03] MEDS: InsuLIN REG 1unit/0.01ml Soln (100units/ml) SC SCH (23:29)
[2019-07-03] MEDS: ACCU-CHEK COMFORT CURVE STRIP VI SCH (23:29)
[2019-07-04 00:16] LABS: Urine Bacteria MANY /hpf (None Seen); Urine Blood Negative /uL (Negative); Urine Hyaline Cast MOD /lpf (0 - 2); Urine Mucus FEW (None Seen); Urine Specific Gravity 1.018 (1.001-1.035); Urine WBC 11 /hpf (0 - 5)
[2019-07-04] MEDS: ACCU-CHEK COMFORT CURVE STRIP VI SCH ×5 (03:59→21:00)
[2019-07-04] MEDS: InsuLIN REG 1unit/0.01ml Soln (100units/ml) SC SCH ×5 (04:00→20:00)
[2019-07-04 05:54] VITALS: BP 88/58
[2019-07-04] MEDS: SODIUM CHLOR 0.9% PF (SALINE LOCK) 10ML VIAL/SYR IV SCH ×3 (06:00→22:09)
[2019-07-04 06:37] VITALS: BP 100/59
[2019-07-04 07:20] LABS: Basophils # (auto) 0.1 uL; Basophils % (auto) 0.6 % (0.0-2.0); Eosinophils # (auto) 0 uL; Eosinophils % (auto) 0.6 % (0.0-7.0); Hematocrit 32.6 % (36.0-46.0); Hemoglobin 11.2 g/dL (12.2-16.2); Lymphocytes # (auto) 3.7 uL; Lymphocytes % (auto) 45.9 % (10.0-50.0); Mean Corpuscular Hemoglobin 30.6 pg (28.0-32.0); Mean Corpuscular Hgb Conc. 34.2 g/dL (32.0-36.0); Mean Corpuscular Volume 89.5 fL (80.0-100.0); Monocytes # (auto) 0.7 uL; Monocytes % (auto) 8.5 % (0.0-12.0); Neutrophils # (auto) 3.6 uL; Neutrophils % (auto) 44.4 % (37.0-80.0); Platelet Count (auto) 377 10^3/uL (140-450); Red Blood Cells 3.65 10^6/uL (4.0-5.20); Red Cell Distribution Width 15.3 % (11.8-14.3); White Blood Cell 8.1 10^3/uL (4.4-10.8)
[2019-07-04 07:36] LABS: Potassium 3.2 mmol/L (3.5-5.1)
[2019-07-04] MEDS: MORPHINE SULFATE 4 MG/ML SYR/VIAL IV PRN ×3 (08:36→22:07)
[2019-07-04] MEDS: ONDANSETRON HCL 4 MG/2 ML VIAL IV PRN ×3 (08:36→22:08)
[2019-07-04 09:00] VITALS: BP 97/59
[2019-07-04] MEDS ORDERED: CEFTRIAXONE SODIUM 2 GM in D5W 5% 50 ML IV ONE (10:30)
[2019-07-04 12:50] VITALS: BP 88/43
[2019-07-04] MEDS ORDERED: POTASSIUM CHL 20MEQ/100ML 100 ML IV ONE (15:30)
[2019-07-04] MEDS ORDERED: metroNIDAZOLE 500MG/100ML 100 ML IV ONE (15:30)
[2019-07-04 16:54] VITALS: BP 121/73
[2019-07-04 21:51] VITALS: BP 102/59
[2019-07-04] MEDS: metroNIDAZOLE 500MG/100ML 100 ML IV SCH (22:08)
[2019-07-05] MEDS: ACCU-CHEK COMFORT CURVE STRIP VI SCH ×7 (03:19→23:33)
[2019-07-05] MEDS: InsuLIN REG 1unit/0.01ml Soln (100units/ml) SC SCH ×7 (04:00→23:33)
[2019-07-05] MEDS: ONDANSETRON HCL 4 MG/2 ML VIAL IV PRN ×5 (04:00→22:29)
[2019-07-05] MEDS: MORPHINE SULFATE 4 MG/ML SYR/VIAL IV PRN ×5 (04:00→22:29)
[2019-07-05 05:26] VITALS: BP 102/69
[2019-07-05 05:51] LABS: Urine Bacteria FEW /hpf (None Seen); Urine Blood Negative /uL (Negative); Urine Hyaline Cast MOD /lpf (0 - 2); Urine Mucus FEW (None Seen); Urine Specific Gravity 1.013 (1.001-1.035); Urine WBC 35 /hpf (0 - 5)
[2019-07-05 06:13] LABS: Hematocrit 32.1 % (36.0-46.0); Hemoglobin 11.1 g/dL (12.2-16.2); Mean Corpuscular Hemoglobin 30.8 pg (28.0-32.0); Mean Corpuscular Hgb Conc. 34.7 g/dL (32.0-36.0); Mean Corpuscular Volume 88.7 fL (80.0-100.0); Platelet Count (auto) 337 10^3/uL (140-450); Red Blood Cells 3.62 10^6/uL (4.0-5.20); Red Cell Distribution Width 15.4 % (11.8-14.3); White Blood Cell 6.9 10^3/uL (4.4-10.8)
[2019-07-05 06:18] LABS: Band Neutrophils % (manual) 0; Basophils % (manual) 0 (0.0-2.0); Blast Cells 0; Eosinophils % (manual) 0 (0-7); Metamyelocytes % 0; Myelocytes % 0; Promyelocytes % 0; Reactive Lymphocytes 0
[2019-07-05] MEDS: SODIUM CHLOR 0.9% PF (SALINE LOCK) 10ML VIAL/SYR IV SCH ×3 (06:23→21:19)
[2019-07-05] MEDS: metroNIDAZOLE 500MG/100ML 100 ML IV SCH ×3 (06:23→21:19)
[2019-07-05 06:28] LABS: Albumin 2.8 g/dL (3.4-5.0); Calcium 8.4 mg/dL (8.5-10.1); Magnesium 1.7 mg/dL (1.6-2.6)
[2019-07-05 06:31] LABS: BUN/Creatinine Ratio 7.9; Bilirubin, Total 0.5 mg/dL (0.2-1.0); Phosphorus 3.7 mg/dL (2.5-4.90); Total Protein 5.7 g/dL (6.4-8.2)
[2019-07-05 06:58] LABS: CRP High Sensitivity 0.02 mg/dL (< 0.3)
[2019-07-05 07:07] LABS: Potassium 2.7 mmol/L (3.5-5.1)
[2019-07-05 08:30] LABS: Lymphocytes % (manual) 42 (10.0-50.0); Monocytes % (manual) 10 (0-12)
[2019-07-05] MEDS: POTASSIUM CHL 20MEQ/100ML 100 ML IV SCH ×2 (08:38→10:04)
[2019-07-05 09:00] VITALS: BP 116/76
[2019-07-05] MEDS: POTASSIUM CHL 20 Meq TABLET PO SCH (10:04)
[2019-07-05] MEDS: cefTRIAXone 1GM/50ML D5W 50 ML IV SCH (10:05)
[2019-07-05 13:00] VITALS: BP 108/71
[2019-07-05] MEDS: SOD CHL 0.9%/ KCL 40MEQ 1,000 ML IV SCH ×2 (14:33→21:19)
[2019-07-05 17:00] VITALS: BP 124/77
[2019-07-05] MEDS: DOCUSATE SOD 100 MG CAP PO PRN (21:19)
[2019-07-05 22:00] VITALS: BP 114/61
[2019-07-06] MEDS: MORPHINE SULFATE 4 MG/ML SYR/VIAL IV PRN ×5 (02:40→21:04)
[2019-07-06] MEDS: ONDANSETRON HCL 4 MG/2 ML VIAL IV PRN ×5 (02:40→21:04)
[2019-07-06] MEDS: InsuLIN REG 1unit/0.01ml Soln (100units/ml) SC SCH ×6 (03:35→23:48)
[2019-07-06] MEDS: ACCU-CHEK COMFORT CURVE STRIP VI SCH ×6 (03:35→23:48)
[2019-07-06 05:46] VITALS: BP 112/65
[2019-07-06 05:51] LABS: Basophils # (auto) 0 uL; Basophils % (auto) 0.7 % (0.0-2.0); Eosinophils # (auto) 0.1 uL; Eosinophils % (auto) 1.2 % (0.0-7.0); Hematocrit 32.8 % (36.0-46.0); Hemoglobin 11.1 g/dL (12.2-16.2); Lymphocytes # (auto) 3.4 uL; Lymphocytes % (auto) 52.5 % (10.0-50.0); Mean Corpuscular Hemoglobin 30.2 pg (28.0-32.0); Mean Corpuscular Hgb Conc. 33.9 g/dL (32.0-36.0); Mean Corpuscular Volume 89.1 fL (80.0-100.0); Monocytes # (auto) 0.4 uL; Monocytes % (auto) 6.5 % (0.0-12.0); Neutrophils # (auto) 2.5 uL; Neutrophils % (auto) 39.1 % (37.0-80.0); Nucleated Red Blood Cells % 0.1 %; Platelet Count (auto) 356 10^3/uL (140-450); Red Blood Cells 3.68 10^6/uL (4.0-5.20); Red Cell Distribution Width 15.4 % (11.8-14.3); White Blood Cell 6.5 10^3/uL (4.4-10.8)
[2019-07-06] MEDS: SODIUM CHLOR 0.9% PF (SALINE LOCK) 10ML VIAL/SYR IV SCH ×3 (05:51→21:04)
[2019-07-06] MEDS: metroNIDAZOLE 500MG/100ML 100 ML IV SCH ×3 (05:51→21:03)
[2019-07-06] MEDS: SOD CHL 0.9%/ KCL 40MEQ 1,000 ML IV SCH ×3 (05:52→23:48)
[2019-07-06 06:09] LABS: Potassium 3.8 mmol/L (3.5-5.1)
[2019-07-06 06:25] LABS: Albumin 2.8 g/dL (3.4-5.0); BUN/Creatinine Ratio 6.3; Bilirubin, Total 0.4 mg/dL (0.2-1.0); Calcium 8.3 mg/dL (8.5-10.1); Magnesium 1.7 mg/dL (1.6-2.6); Phosphorus 3.1 mg/dL (2.5-4.90); Total Protein 5.6 g/dL (6.4-8.2)
[2019-07-06 09:00] VITALS: BP 126/46
[2019-07-06] MEDS: cefTRIAXone 1GM/50ML D5W 50 ML IV SCH (10:30)
[2019-07-06] MEDS: DOCUSATE SOD 100 MG CAP PO PRN (10:30)
[2019-07-06] MEDS: POTASSIUM CHL 20 Meq TABLET PO SCH (10:30)
[2019-07-06 13:00] VITALS: BP 134/74
[2019-07-06 22:00] VITALS: BP 137/85
[2019-07-06] MEDS ORDERED: DEXTROSE (50%) 50ML SYRG IV PRN (22:45)
[2019-07-07 02:36] LABS: Protein, Urine 10.8 mg/dL (0.0-11.9)
[2019-07-07] MEDS: ONDANSETRON HCL 4 MG/2 ML VIAL IV PRN ×4 (03:26→20:33)
[2019-07-07] MEDS: MORPHINE SULFATE 4 MG/ML SYR/VIAL IV PRN ×3 (03:26→15:23)
[2019-07-07 04:06] LABS: RPR Non Reactive (Non Reactive)
[2019-07-07 05:15] VITALS: BP 105/56
[2019-07-07] MEDS: SODIUM CHLOR 0.9% PF (SALINE LOCK) 10ML VIAL/SYR IV SCH ×3 (05:30→21:38)
[2019-07-07] MEDS: metroNIDAZOLE 500MG/100ML 100 ML IV SCH ×3 (05:30→21:37)
[2019-07-07] MEDS: ACCU-CHEK COMFORT CURVE STRIP VI SCH ×2 (05:40→14:05)
[2019-07-07] MEDS: InsuLIN REG 1unit/0.01ml Soln (100units/ml) SC SCH ×2 (05:40→12:00)
[2019-07-07 06:44] LABS: Anion Gap 4 (5-15); Blood Urea Nitrogen < 1 mg/dL (7-18); Calcium 8.4 mg/dL (8.5-10.1); Carbon Dioxide 28 mmol/L (21-32); Chloride 108 mmol/L (98-107); Potassium 4.3 mmol/L (3.5-5.1); Sodium 140 mmol/L (136-145)
[2019-07-07 06:47] LABS: BUN/Creatinine Ratio 3.2; GFR African American 307 mL/min; GFR Non-African American 253 mL/min; Glucose 71 mg/dL (74-106)
[2019-07-07 09:00] VITALS: BP 126/89
[2019-07-07] MEDS: cefTRIAXone 1GM/50ML D5W 50 ML IV SCH (10:19)
[2019-07-07] MEDS: POTASSIUM CHL 20 Meq TABLET PO SCH (10:30)
[2019-07-07] MEDS: SOD CHL 0.9%/ KCL 40MEQ 1,000 ML IV SCH ×2 (10:38→14:06)
[2019-07-07] MEDS: DOCUSATE SOD 100 MG CAP PO PRN (10:44)
[2019-07-07] MEDS ORDERED: HYOSCYAMINE SULF 0.125 MG ODT TAB PO PRN (16:15)
[2019-07-07] MEDS: LACTULOSE 20Gm/30ML SOLN PO PRN (18:22)
[2019-07-07] MEDS: MORPHINE SULF INJ 2 MG/ML SYRINGE 1ML IV PRN (20:33)
[2019-07-07 22:00] VITALS: BP 123/72
[2019-07-08] MEDS: ONDANSETRON HCL 4 MG/2 ML VIAL IV PRN ×2 (02:45→08:53)
[2019-07-08] MEDS: MORPHINE SULF INJ 2 MG/ML SYRINGE 1ML IV PRN ×2 (02:45→08:52)
[2019-07-08] MEDS: metroNIDAZOLE 500MG/100ML 100 ML IV SCH (05:44)
[2019-07-08] MEDS: LACTULOSE 20Gm/30ML SOLN PO PRN (05:44)
[2019-07-08 05:51] VITALS: BP 99/63
[2019-07-08] MEDS: SODIUM CHLOR 0.9% PF (SALINE LOCK) 10ML VIAL/SYR IV SCH (06:13)
[2019-07-08 09:00] VITALS: BP 115/73
[2019-07-08] MEDS: cefTRIAXone 1GM/50ML D5W 50 ML IV SCH (09:35)
[2019-07-08] MEDS ORDERED: METF-370 PO (10:44)
[2019-07-08] MEDS ORDERED: HYDROcodone-ACET 5/325MG TAB PO PRN (11:00)
[2019-07-08] MEDS ORDERED: ACETAMINOPHEN 325 MG TAB PO PRN (11:00)
[2019-07-08 12:14] VITALS: BP 115/73
[2019-07-08 13:00] VITALS: BP 105/68
== END 2019-07-08 13:00 | disposition home or self-care (01) | DRG 392 ==
LOC: ER 15:14 → OVERFLOW 15:15 → WEST WING 23:11
PROVIDERS: ADMIT Hospitalist; ATTEND Internal Medicine Nephrology
DX: K58.1 Irritable bowel syndrome with constipation (principal); N10 Acute pyelonephritis; E11.9 Type 2 diabetes mellitus without complications; E87.6 Hypokalemia; G89.29 Other chronic pain; N73.9 Female pelvic inflammatory disease, unspecified; N85.8 Other specified noninflammatory disorders of uterus; N83.202 Unspecified ovarian cyst, left side; K59.00 Constipation, unspecified; Z82.49 Family history of ischemic heart disease and other diseases of the circulatory system; Z98.51 Tubal ligation status; Z83.3 Family history of diabetes mellitus; Z79.84 Long term (current) use of oral hypoglycemic drugs
CPT/HCPCS: 36415; 76830; 76856; 80048; 80053; 80061; 80074; 81001; 82088; 82570; 82962; 83036; 83735; 84100; 84133; 84156; 84244; 84300; 85007; 85025; 85027; 86141; 86592; 86703; 96365; 96375; C9113; G0378; J0696; J2405; J3480; J3490; J7060

== ENCOUNTER 2019-07-20 11:14 | Emergency (ER) | payer SELFPAY ==
[~2019-07-20] VITALS: Ht 162.6 cm; Wt 69.9 kg
[~2019-07-20 11:14] MED LIST changes: -DOCU-94 PO; -ONDA-144 PO
[2019-07-20] MEDS ORDERED: SODIUM CHLORIDE 0.9% 1,000 ML IV ONE ×2 (11:35)
[2019-07-20] MEDS ORDERED: PROMETHAZINE HCL 25 MG/ML 1ML ONE (11:39)
[2019-07-20] MEDS ORDERED: PROMETHAZINE HCL 25 MG/ML 1ML IV ONE (11:45)
[2019-07-20 11:49] VITALS: BP 170/96
[2019-07-20 11:53] LABS: Basophils # (auto) 0.1 uL; Basophils % (auto) 0.7 % (0.0-2.0); Eosinophils # (auto) 0 uL; Hematocrit 40.9 % (36.0-46.0); Lymphocytes # (auto) 2.8 uL; Lymphocytes % (auto) 32.6 % (10.0-50.0); Mean Corpuscular Hgb Conc. 34.3 g/dL (32.0-36.0); Mean Corpuscular Volume 90.4 fL (80.0-100.0); Monocytes # (auto) 0.6 uL; Monocytes % (auto) 6.7 % (0.0-12.0); Neutrophils # (auto) 5.2 uL; Platelet Count (auto) 351 10^3/uL (140-450); Red Blood Cells 4.52 10^6/uL (4.0-5.20); Red Cell Distribution Width 15.7 % (11.8-14.3); White Blood Cell 8.7 10^3/uL (4.4-10.8)
[2019-07-20 12:09] LABS: Chloride 104 mmol/L (98-107); Potassium 3.3 mmol/L (3.5-5.1); Sodium 138 mmol/L (136-145)
[2019-07-20 12:17] LABS: Alanine Aminotransferase 22 U/L (13-56); Alkaline Phosphatase 44 U/L (45-117); Anion Gap 9 (5-15); Aspartate Aminotransferase 22 U/L (15-37); BUN/Creatinine Ratio 8.6; Bilirubin, Total 0.9 mg/dL (0.2-1.0); Blood Urea Nitrogen 5 mg/dL (7-18); Calcium 9.5 mg/dL (8.5-10.1); Carbon Dioxide 25 mmol/L (21-32); GFR African American 149 mL/min; GFR Non-African American 123 mL/min; Glucose 149 mg/dL (74-106); Total Protein 7.6 g/dL (6.4-8.2)
[2019-07-20] MEDS ORDERED: POTASSIUM CHL 20MEQ/100ML 100 ML IV ONE (12:30)
[2019-07-20] MEDS ORDERED: POTASSIUM CHLORIDE 20 MEQ, LIDOCAINE 1% (LOCAL ANESTH.) 2 ML in SODIUM CHL 0.9% 100 ML IV ONE (12:45)
[2019-07-20] MEDS ORDERED: KETOROLAC TROMETH 30 MG/ML 1ML VIAL IV ONE (14:30)
== END 2019-07-20 15:09 | disposition home or self-care (01) ==
LOC: ER 11:14
DX: K52.9 Noninfective gastroenteritis and colitis, unspecified (principal); E87.6 Hypokalemia; E11.9 Type 2 diabetes mellitus without complications; Z98.51 Tubal ligation status
CPT/HCPCS: 36415; 74176; 80053; 82010; 83690; 84484; 85025; 96361; 96365; 96366; 96375; 99284; J1885; J2001; J2550; J3480

== ENCOUNTER 2019-07-25 15:30 | Emergency (ER) | payer SELFPAY ==
[~2019-07-25] VITALS: Ht 162.6 cm; Wt 69.9 kg
[2019-07-25 16:18] VITALS: BP 137/83
[2019-07-25] MEDS ORDERED: SODIUM CHLORIDE 0.9% 1,000 ML IV ONE (20:15)
[2019-07-25 20:59] LABS: Albumin 3.4 g/dL (3.4-5.0); Calcium 8.7 mg/dL (8.5-10.1); Potassium 3.4 mmol/L (3.5-5.1)
[2019-07-25 21:02] LABS: BUN/Creatinine Ratio 17.5; Bilirubin, Total 0.9 mg/dL (0.2-1.0); Total Protein 6.6 g/dL (6.4-8.2)
[2019-07-26] MEDS ORDERED: HYOSCYAMINE SULF 0.125 MG ODT TAB PO ONE (01:15)
[2019-07-26] MEDS ORDERED: traMADol HCL 50 MG TAB PO ONE (01:15)
== END 2019-07-26 02:30 | disposition home or self-care (01) ==
LOC: ER 15:30
DX: K58.9 Irritable bowel syndrome, unspecified (principal); E11.9 Type 2 diabetes mellitus without complications; Z98.51 Tubal ligation status
CPT/HCPCS: 36415; 80053

== ENCOUNTER 2019-08-02 09:12 | Emergency (ER) | payer SELFPAY ==
[~2019-08-02] VITALS: Ht 162.6 cm; Wt 72.6 kg
[2019-08-02 09:53] LABS: Basophils # (auto) 0 uL; Basophils % (auto) 0.5 % (0.0-2.0); Eosinophils # (auto) 0 uL; Eosinophils % (auto) 0.6 % (0.0-7.0); Hematocrit 37.5 % (36.0-46.0); Hemoglobin 12.7 g/dL (12.2-16.2); Lymphocytes # (auto) 2.5 uL; Lymphocytes % (auto) 38.3 % (10.0-50.0); Mean Corpuscular Hemoglobin 31.1 pg (28.0-32.0); Mean Corpuscular Hgb Conc. 33.9 g/dL (32.0-36.0); Mean Corpuscular Volume 91.6 fL (80.0-100.0); Monocytes # (auto) 0.6 uL; Monocytes % (auto) 9.1 % (0.0-12.0); Neutrophils # (auto) 3.4 uL; Neutrophils % (auto) 51.5 % (37.0-80.0); Nucleated Red Blood Cells % 0.1 %; Platelet Count (auto) 342 10^3/uL (140-450); Red Cell Distribution Width 15.4 % (11.8-14.3); White Blood Cell 6.6 10^3/uL (4.4-10.8)
[2019-08-02 10:00] LABS: Urine Bacteria NONE SEEN /hpf (None Seen); Urine Blood Negative /uL (Negative); Urine Mucus FEW (None Seen); Urine Specific Gravity 1.019 (1.001-1.035); Urine WBC 6 /hpf (0 - 5)
[2019-08-02 10:10] LABS: Albumin 3.5 g/dL (3.4-5.0); Potassium 3.6 mmol/L (3.5-5.1)
[2019-08-02 10:15] LABS: BUN/Creatinine Ratio 18.4; Bilirubin, Total 0.9 mg/dL (0.2-1.0); Total Protein 7.1 g/dL (6.4-8.2)
[2019-08-02] MEDS ORDERED: SODIUM CHLORIDE 0.9% 1,000 ML IVB ONE (11:07)
[2019-08-02] MEDS ORDERED: KETOROLAC TROMETH 15 mg/ml 1ML VL IV ONE (11:15)
[2019-08-02] MEDS ORDERED: METOCLOPRAMIDE HCL 5MG/ml INJ 2ml VIAL IV ONE (11:15)
[2019-08-02 12:00] VITALS: BP 119/72
== END 2019-08-02 13:08 | disposition home or self-care (01) ==
LOC: ER 09:12
DX: R10.9 Unspecified abdominal pain (principal); E11.9 Type 2 diabetes mellitus without complications; R11.2 Nausea with vomiting, unspecified
CPT/HCPCS: 36415; 80053; 81001; 81025; 83690; 85025; 96361; 96374; 96375; 99283; J1885; J2765

== ENCOUNTER 2019-08-13 15:17 | Emergency (ER) | payer BC ==
[~2019-08-13] VITALS: Ht 162.6 cm; Wt 61.2 kg
[2019-08-13 15:43] VITALS: BP 172/70
[2019-08-13] MEDS ORDERED: SODIUM CHLORIDE 0.9% 1,000 ML IV ONE ×2 (15:57)
[2019-08-13] MEDS ORDERED: PROMETHAZINE HCL 25 MG/ML 1ML IV ONE (16:00)
[2019-08-13] MEDS ORDERED: MORPHINE SULFATE 4 MG/ML SYR/VIAL IV ONE (16:00)
[2019-08-13 16:01] LABS: Basophils # (auto) 0 uL; Basophils % (auto) 0.5 % (0.0-2.0); Eosinophils # (auto) 0 uL; Eosinophils % (auto) 0.1 % (0.0-7.0); Hematocrit 37.7 % (36.0-46.0); Hemoglobin 12.7 g/dL (12.2-16.2); Lymphocytes # (auto) 1.2 uL; Lymphocytes % (auto) 18.3 % (10.0-50.0); Mean Corpuscular Hgb Conc. 33.7 g/dL (32.0-36.0); Mean Corpuscular Volume 91.8 fL (80.0-100.0); Monocytes # (auto) 0.2 uL; Monocytes % (auto) 3.8 % (0.0-12.0); Neutrophils # (auto) 4.9 uL; Neutrophils % (auto) 77.3 % (37.0-80.0); Platelet Count (auto) 362 10^3/uL (140-450); Red Cell Distribution Width 15.2 % (11.8-14.3); White Blood Cell 6.4 10^3/uL (4.4-10.8)
[2019-08-13 16:17] LABS: Albumin 3.4 g/dL (3.4-5.0); BUN/Creatinine Ratio 15.9; Potassium 3.2 mmol/L (3.5-5.1)
[2019-08-13 16:20] LABS: Bilirubin, Total 0.6 mg/dL (0.2-1.0)
[2019-08-13] MEDS ORDERED: POTASSIUM EFFERVESENT TAB 25 MEQ PO ONE (17:00)
== END 2019-08-13 22:00 | disposition left against medical advice (07) ==
LOC: ER 15:24
DX: E86.0 Dehydration (principal); E87.6 Hypokalemia; E11.9 Type 2 diabetes mellitus without complications; Z98.51 Tubal ligation status
CPT/HCPCS: 36415; 80053; 85025

== ENCOUNTER 2019-09-03 10:44 | Emergency (ER) | payer BC ==
[~2019-09-03] VITALS: Ht 162.6 cm; Wt 63.5 kg
[2019-09-03 10:57] VITALS: BP 98/64
[2019-09-03] MEDS ORDERED: ONDANSETRON HCL 4 MG/2 ML VIAL IM ONE (11:00)
[2019-09-03] MEDS ORDERED: HYDROmorphone HCL 2 MG/ML VL IM ONE (11:00)
[2019-09-03 12:14] LABS: Basophils # (auto) 0.1 10 ^3/uL (0-0.2); Basophils % (auto) 0.8 % (0.0-2.0); Eosinophils # (auto) 0 10 ^3/uL (0-0.8); Eosinophils % (auto) 0.6 % (0.0-7.0); Hematocrit 40.8 % (36.0-46.0); Hemoglobin 13.5 g/dL (12.2-16.2); Lymphocytes % (auto) 40.7 % (10.0-50.0); Mean Corpuscular Hemoglobin 30.9 pg (28.0-32.0); Mean Corpuscular Hgb Conc. 33.1 g/dL (32.0-36.0); Mean Corpuscular Volume 93.4 fL (80.0-100.0); Monocytes # (auto) 0.4 10 ^3/uL (0-1.3); Monocytes % (auto) 5.9 % (0.0-12.0); Neutrophils # (auto) 3.9 10 ^3/uL (1.6-8.6); Nucleated Red Blood Cells % 0.1 %; Platelet Count (auto) 366 10^3/uL (140-450); Red Blood Cells 4.36 10^6/uL (4.0-5.20); Red Cell Distribution Width 14.4 % (11.8-14.3); White Blood Cell 7.4 10^3/uL (4.4-10.8)
[2019-09-03 12:25] LABS: Urine Bacteria NONE SEEN /hpf (None Seen); Urine Blood Negative /uL (Negative); Urine Mucus FEW (None Seen); Urine Specific Gravity 1.014 (1.001-1.035); Urine WBC 5 /hpf (0 - 5)
[2019-09-03 12:31] LABS: Albumin 3.9 g/dL (3.4-5.0); Calcium 9.4 mg/dL (8.5-10.1); Potassium 3.5 mmol/L (3.5-5.1)
[2019-09-03 12:34] LABS: Total Protein 7.6 g/dL (6.4-8.2)
== END 2019-09-03 12:53 | disposition home or self-care (01) ==
LOC: ER 10:44
DX: N39.0 Urinary tract infection, site not specified (principal); E11.9 Type 2 diabetes mellitus without complications
CPT/HCPCS: 36415; 70450; 80053; 81001; 83690; 85025; 96372; 99284; J1170; J2405

== ENCOUNTER 2021-05-10 15:46 | Inpatient (IN) | payer BC ==
[~2021-05-10] VITALS: Ht 162.6 cm; Wt 104.2 kg
[~2021-05-10 15:46] MED LIST changes: +HYOS0.1289 PO; -HYOS0.1297 PO
[2021-05-10 16:29] LABS: Urine Bacteria NONE SEEN /hpf (None Seen); Urine Blood TRACE /uL (Negative); Urine Specific Gravity 1.015 (1.001-1.035); Urine WBC 30 /hpf (0 - 5); Urine WBC Clumps PRESENT /hpf (None Seen)
[2021-05-10 18:08] LABS: Albumin 3.5 g/dL (3.4-5.0); Calcium 9.1 mg/dL (8.5-10.1)
[2021-05-10 18:11] LABS: BUN/Creatinine Ratio 14.7; Bilirubin, Total 1.3 mg/dL (0.2-1.0); Total Protein 7.7 g/dL (6.4-8.2)
[2021-05-10 18:28] LABS: Hematocrit 41.5 % (36.0-46.0); Hemoglobin 14.1 g/dL (12.2-16.2); Mean Corpuscular Hemoglobin 30.2 pg (28.0-32.0); Mean Corpuscular Volume 88.9 fL (80.0-100.0); Red Blood Cells 4.67 10^6/uL (4.0-5.20); Red Cell Distribution Width 13.2 % (11.8-14.3); White Blood Cell 15.8 10^3/uL (4.4-10.8)
[2021-05-10 18:34] LABS: Basophils % (manual) 0 (0.0-2.0); Blast Cells 0; Eosinophils % (manual) 0 (0-7); Myelocytes % 0; Promyelocytes % 0; Reactive Lymphocytes 0
[2021-05-10 18:55] LABS: Band Neutrophils % (manual) 18; Lymphocytes % (manual) 2 (10.0-50.0); Monocytes % (manual) 3 (0-12)
[2021-05-10 18:56] LABS: Metamyelocytes % 1
[2021-05-10] MEDS ORDERED: SODIUM CHLORIDE 0.9% 1,000 ML IV ONE ×2 (19:45→23:15)
[2021-05-10] MEDS ORDERED: cefTRIAXone 1GM/50ML D5W 50 ML IV ONE (19:45)
[2021-05-10] MEDS ORDERED: ONDANSETRON HCL 4 MG/2 ML VIAL IV ONE (19:45)
[2021-05-11] MEDS ORDERED: SODIUM CHLORIDE 0.9% 500 ML IV ONE (03:15)
[2021-05-11] MEDS ORDERED: ONDANSETRON HCL 4 MG/2 ML VIAL IV PRN (03:15)
[2021-05-11] MEDS ORDERED: ACETAMINOPHEN 325 MG TAB PO PRN (03:15)
[2021-05-11] MEDS ORDERED: TEMAZEPAM 15 MG CAP PO PRN (03:15)
[2021-05-11] MEDS: HYDROcodone-ACET 5/325MG TAB PO PRN ×3 (04:00→20:31)
[2021-05-11] MEDS: metFORMIN HYDROCHLORIDE 500 MG TAB PO SCH ×2 (08:25→17:14)
[2021-05-11] MEDS: cefTRIAXone 1GM/50ML D5W 50 ML IV SCH (09:00)
[2021-05-11] MEDS: PANTOPRAZOLE 40 MG TAB PO SCH (09:55)
[2021-05-11 11:34] VITALS: BP 133/47
[2021-05-11] MEDS: SODIUM CHLORIDE 0.9% 1,000 ML IV SCH ×2 (14:55→19:20)
[2021-05-11 17:01] VITALS: BP 151/78
[2021-05-11 22:00] VITALS: BP 133/60
[2021-05-12] MEDS: SODIUM CHLORIDE 0.9% 1,000 ML IV SCH ×4 (01:35→21:35)
[2021-05-12 05:00] VITALS: BP 140/69
[2021-05-12 08:15] VITALS: BP 135/70
[2021-05-12 09:00] VITALS: BP 135/70
[2021-05-12 09:16] LABS: Basophils # (auto) 0 10 ^3/uL (0-0.2); Basophils % (auto) 0.3 % (0.0-2.0); Eosinophils # (auto) 0 10 ^3/uL (0-0.8); Eosinophils % (auto) 0.1 % (0.0-7.0); Hematocrit 39.2 % (36.0-46.0); Hemoglobin 12.9 g/dL (12.2-16.2); Lymphocytes % (auto) 9.5 % (10.0-50.0); Mean Corpuscular Hemoglobin 29.4 pg (28.0-32.0); Mean Corpuscular Volume 89.3 fL (80.0-100.0); Monocytes # (auto) 1.1 10 ^3/uL (0-1.3); Monocytes % (auto) 10.3 % (0.0-12.0); Neutrophils # (auto) 8.2 10 ^3/uL (1.6-8.6); Neutrophils % (auto) 79.8 % (37.0-80.0); Red Blood Cells 4.38 10^6/uL (4.0-5.20); Red Cell Distribution Width 13.4 % (11.8-14.3); White Blood Cell 10.3 10^3/uL (4.4-10.8)
[2021-05-12] MEDS: PANTOPRAZOLE 40 MG TAB PO SCH (09:25)
[2021-05-12] MEDS: metFORMIN HYDROCHLORIDE 500 MG TAB PO SCH ×2 (09:25→18:11)
[2021-05-12] MEDS: cefTRIAXone 1GM/50ML D5W 50 ML IV SCH (09:25)
[2021-05-12 09:33] LABS: BUN/Creatinine Ratio 15.8; Potassium 3.9 mmol/L (3.5-5.1)
[2021-05-12 12:40] VITALS: BP 126/70
[2021-05-12 16:41] VITALS: BP 114/49
[2021-05-12 20:53] VITALS: BP 129/56
[2021-05-12] MEDS ORDERED: KETOROLAC TROMETH 30 MG/ML 1ML VIAL IV ONE (21:15)
[2021-05-13] VITALS (7 sets, daily range): BP systolic 116–144; BP diastolic 59–74
[2021-05-13] MEDS: SODIUM CHLORIDE 0.9% 1,000 ML IV SCH ×3 (04:15→17:27)
[2021-05-13] MEDS: metFORMIN HYDROCHLORIDE 500 MG TAB PO SCH ×2 (08:07→17:27)
[2021-05-13] MEDS: cefTRIAXone 1GM/50ML D5W 50 ML IV SCH (08:44)
[2021-05-13] MEDS: KETOROLAC TROMETH 30 MG/ML 1ML VIAL IV PRN ×2 (10:23→20:08)
[2021-05-13] MEDS: PANTOPRAZOLE 40 MG TAB PO SCH (10:23)
[2021-05-14] MEDS: SODIUM CHLORIDE 0.9% 1,000 ML IV SCH ×4 (03:25→22:14)
[2021-05-14 05:00] VITALS: BP 109/64
[2021-05-14] MEDS: KETOROLAC TROMETH 30 MG/ML 1ML VIAL IV PRN ×3 (08:03→22:14)
[2021-05-14] MEDS: metFORMIN HYDROCHLORIDE 500 MG TAB PO SCH ×2 (08:03→17:40)
[2021-05-14 08:15] VITALS: BP 116/63
[2021-05-14 08:39] VITALS: BP 116/63
[2021-05-14] MEDS: cefTRIAXone 1GM/50ML D5W 50 ML IV SCH (08:52)
[2021-05-14] MEDS: PANTOPRAZOLE 40 MG TAB PO SCH (09:54)
[2021-05-14 12:44] VITALS: BP 118/61
[2021-05-14 16:41] VITALS: BP 137/67
[2021-05-14 22:00] VITALS: BP 136/68
[2021-05-15] MEDS: SODIUM CHLORIDE 0.9% 1,000 ML IV SCH ×2 (02:55→07:16)
[2021-05-15] MEDS: KETOROLAC TROMETH 30 MG/ML 1ML VIAL IV PRN (04:17)
[2021-05-15 05:00] VITALS: BP 131/68
[2021-05-15 08:30] VITALS: BP 135/66
[2021-05-15] MEDS: PANTOPRAZOLE 40 MG TAB PO SCH (09:07)
[2021-05-15] MEDS: metFORMIN HYDROCHLORIDE 500 MG TAB PO SCH (09:07)
[2021-05-15] MEDS: cefTRIAXone 1GM/50ML D5W 50 ML IV SCH (09:07)
[2021-05-15 12:30] VITALS: BP_SYST 127; BP_SYST 152; BP_DIAS 70; BP_DIAS 77
[2021-05-15 17:00] VITALS: BP 136/70
== END 2021-05-15 18:00 | disposition home or self-care (01) | DRG 872 ==
LOC: ER 15:46 → OVERFLOW 05-11 03:07 → WEST WING 05-11 10:33
PROVIDERS: ADMIT Nurse Practitioner; ATTEND Family Medicine
DX: A41.51 Sepsis due to Escherichia coli [E. coli] (principal); N10 Acute pyelonephritis; E11.9 Type 2 diabetes mellitus without complications; E66.01 Morbid (severe) obesity due to excess calories; Z20.822 Contact with and (suspected) exposure to COVID-19; Z68.39 Body mass index [BMI] 39.0-39.9, adult; Z82.49 Family history of ischemic heart disease and other diseases of the circulatory system; Z83.3 Family history of diabetes mellitus
CPT/HCPCS: 36415; 74176; 80048; 80053; 81001; 82962; 83605; 83690; 85007; 85025; 85027; 87040; 87077; 87086; 87088; 87186; 87426; 96365; 96375; G0378; J0696; J1885; J2405

== ENCOUNTER 2025-06-16 15:36 | Emergency (ER) | payer BC, OTHER ==
[~2025-06-16] VITALS: Ht 162.6 cm; Wt 80.1 kg
[2025-06-16 15:37] VITALS: RESP 18
--- NOTE | 2025-06-16 16:00 | ED.PDOC ---
History of Present Illness HPI Comments 45F presents to the ER w/ prior MHx of HTN, DM, UTI and the c/c of dizziness. Pt reports on having had dizziness for the past 3 days which worsens when standing from a sitting position. Pt notes on also having cervical pain which radiates up to the head. Pt had a BS of 114 in triage. Denies any symptoms at this time. Patient denies any CP, SOB, numbness, weakness, tingling, fever, chills, or recent fall. Chief Complaint: Dizziness Time Seen by MD: 16:00 Primary Care Provider: EL Reviewed Notes: Nurses Notes, Medications, Allergies Allergies: Coded Allergies: NO KNOWN ALLERGIES (Unverified , 08/02/19) Home Meds Active Scripts Metformin Hydrochloride (Metformin Hcl) 500 Mg Tab, 500 MG PO BID for 30 Days, MG Prov:GABE MAO MD 07/08/19 Hyoscyamine Sulfate (HYOSCYAMINE SULFATE ODT) 0.125 Mg Tab, 0.25 MG PO Q4HPRN PRN, #30 TAB Prov:JOEL ADLER MD 05/28/19 Information Source: Patient Mode of Arrival: Ambulatory Severity: Moderate Timing: Days Duration: Since onset, Days Prehospital treatment: None Past Medical History PAST MEDICAL HISTORY: DM, HTN, UTI'S Surgical History: Denies all surgeries 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 Family History Family History: Reviewed,noncontributory to illness, Unknown Social History Smoker: Non-Smoker Alcohol: Denies ETOH Use Drugs: Denies Drug Use Lives In: Home Constitutional: denies: chills, diaphoresis, fatigue, fever, malaise, sweats, weakness, others EENTM: denies: blurred vision, double vision, ear bleeding, ear discharge, ear drainage, ear pain, ear ringing, eye pain, eye redness, hearing loss, mouth pain, mouth swelling, nasal discharge, nose bleeding, nose congestion, nose pain, photophobia, tearing, throat pain, throat swelling, voice changes, others Respiratory: denies: cough, hemoptysis, orthopnea, SOB at rest, shortness of breath, SOB with excertion, stridor, wheezing, others Cardiovascular: denies: chest pain, dizzy spells, diaphoresis, Dyspnea on exertion, edema, irregular heart beat, left arm pain, lightheadedness, palpitations, PND, syncope, others Gastrointestinal: denies: abdomen distended, abdominal pain, blood streaked bowels, constipated, diarrhea, dysphagia, difficulty swallowing, hematemesis, melena, nausea, poor appetite, poor fluid intake, rectal bleeding, rectal pain, vomiting, others Genitourinary: denies: abnormal vagina bleeding, burning, dyspareunia, dysuria, flank pain, frequency, hematuria, incontinence, pain, , vagina discharge, urgency, others Neurological: reports: dizziness; denies: fainting, headache, left sided numbness, left sided weakness, numbness, paresthesia, pre-existing deficit, right sided numbness, right sided weakness, seizure, speech problems, tingling, tremors, weakness, others Musculoskeletal: reports: neck pain; denies: back pain, gout, joint pain, joint swelling, muscle pain, muscle stiffness, others Integumetry: denies: bruises, change in color, change in hair/nails, dryness, laceration, lesions, lumps, rash, wounds, others Allergic/Immunocompromised: denies: Difficulty Healing, Frequent Infections, Hives, Itching, others Hematologic/Lymphatic: denies: anemia, blood clots, easy bleeding, easy bruising, swollen glands, others Endocrine: denies: excessive hunger, excessive sweating, excessive thirst, excessive urination, flushing, intolerance to cold, intolerance to heat, unexpla ined weight gain, unexplained weight loss, others Psychiatric: denies: anxiety, bipolar disorder, depression, hopeless, panic disorder, schizophrenia, sleepless, suicidal, others All Other Systems: Reviewed and Negative Physical Exam Exam Comments Ear Canal was normal General Appearance: No Apparent Distress, Normal HEENT: Normal ENT Inspection, Pharynx Normal, TMs Normal Neck: Full Range of Motion, Non-Tender, Normal, Normal Inspection Respiratory: Chest Non-Tender, Lungs Clear, No Accessory Muscle Use, No Respiratory Distress, Normal Breath Sounds Cardiovascular: No Edema, No JVD, No Murmur, No Gallop, Normal Peripheral Pulses, Regular Rate/Rhythm Breast Exam: Deferred Gastrointestinal: No Organomegaly, Non Tender, No Pulsatile Mass, Normal Bowel Sounds, Soft Genitalia: Deferred Pelvic: Deferred Rectal: Deferred Extremities: No calf tenderness, Normal capillary refill, Normal inspection, Normal range of motion, Non-tender, No pedal edema Musculoskeletal : Apperance: Normal Neurologic: Alert, master fire control technician II-XII nml as Tested, No Motor Deficits, Normal Affect, Normal Mood, No Sensory Deficits Cerebellar Function: Normal Reflexes: Normal Skin: Dry, Normal Color, Warm Lymphatic: No Adenopathy Was a procedure done? Was a procedure done?: No EKG EKG : Pulse Rate (adult): 91 [place]: Normal Cardiac Rhythm: NSR (low voltage) Block: None Hypertrophy: None ST: Normal Differential Dx Considerations may include: Vertigo, benign positional vertigo, UTI X-Ray, Labs, Meds, VS Vital Signs Date Time Temp Pulse Resp B/P (MAP) Pulse Ox O2 Delivery O2 Flow Rate FiO2 06/16/25 16:00 91 06/16/25 15:43 91 06/16/25 15:37 98.4 100 18 117/74 95 98.4 Lab Test 06/16/25 16:40 06/16/25 16:09 Range/Units Urine Color Dark-yellow Yellow Urine Clarity Turbid H Clear Urine pH 6.0 5.0-9.0 Urine Specific [place] 1.027 1.001-1.035 Urine Protein 1+ H Negative Urine Ketones 3+ H Negative Urine Blood Negative Negative /uL Urine Nitrite Negative Negative Urine Bilirubin Negative Negative Urine Urobilinogen 2 H Negative mg/dL Urine Leukocyte Esterase 3+ Negative /uL Urine RBC 7 0 - 4 /hpf Urine Microscopic WBC 7 H 0-5 /HPF Urine Squamous Epithelial Cells Mod <5 /hpf Urine Bacteria Many H None Seen /hpf Urine Hyaline Casts Few 0 - 2 /lpf Urine Mucus Few None Seen Urine Glucose Normal Normal mg/dL White Blood Count 9.3 4.4-10.8 10^3/uL Red Blood Count 4.66 4.0-5.20 10^6/uL Hemoglobin 13.9 12.2-16.2 g/dL Hematocrit 42.2 36.0-46.0 % Mean Corpuscular Volume 90.5 80.0-100.0 fL Mean Corpuscular Hemoglobin 29.9 28.0-32.0 pg Mean Corpuscular Hemoglobin Concent 33.0 32.0-36.0 g/dL Red Cell Distribution Width 14.2 11.8-14.3 % Platelet Count 235 140-450 10^3/uL Mean Platelet Volume 9.8 6.9-10.8 fL Neutrophils (%) (Auto) 57.8 37.0-80.0 % Lymphocytes (%) (Auto) 34.8 10.0-50.0 % Monocytes (%) (Auto) 6.1 0.0-12.0 % Eosinophils (%) (Auto) 0.8 0.0-7.0 % Basophils (%) (Auto) 0.5 0.0-2.0 % Neutrophils # (Auto) 5.4 1.6-8.6 10 ^3/uL Lymphocytes # (Auto) 3.2 0.4-5.4 10 ^3/uL Monocytes # (Auto) 0.6 0-1.3 10 ^3/uL Eosinophils # (Auto) 0.1 0-0.8 10 ^3/uL Basophils # (Auto) 0 0-0.2 10 ^3/uL Nucleated Red Blood Cells 0.0 % Sodium Level 139 136-145 mmol/L Potassium Level 4.1 3.5-5.1 mmol/L Chloride Level 101 98-107 mmol/L Carbon Dioxide Level 25 20-31 mmol/L Anion Gap 13 5-15 Blood Urea Nitrogen 14 9-23 mg/dL Creatinine 0.88 0.550-1.02 mg/dL Glomerular Filtration Rate Calc 83 >90 mL/min BUN/Creatinine Ratio 15.9 10.0-20.0 Serum Glucose 97 74-106 mg/dL Calcium Level 10.5 H 8.7-10.4 mg/dL X-Ray, Labs, Meds, VS Comment Imaging was reviewed by this provider, there is no obvious pathological or acute disease process. Pending radiology review Labs were reviewed by this provider, no abnormalities Vital signs reviewed by this provider, clinically stable Time of 1ST Reevaluation: 16:30 Reevaluation 1ST: Unchanged Patient Education/Counseling: Diagnosis, Treatment, Prognosis, Need For Follow Up (Follow up with PCP in next 2-3 days. Return to emergency department sym ptoms worsen.) Family Education/Counseling: No Family Present SEPSIS Sepsis Screen Date sepsis recognized/suspect: Jun 16, 2025 Time Sepsis recognized/suspect: 8 Recent Procedure: No On Antibiotic Therapy: No Respiratory Rate >20: No Heart Rate >90: Yes Temp<36 C (96.8 F) or >38.3 C: No SBP <90 or MAP <65 mmHG: No New Acute Mental Status Change: No Is the patient on CPAP, BIPAP,: No Physician Orders Electrocardigram (06/16/25 15:58) Vital Signs Date Time Temp Pulse Resp B/P (MAP) Pulse Ox O2 Delivery O2 Flow Rate FiO2 06/16/25 16:00 91 06/16/25 15:43 91 06/16/25 15:37 98.4 100 18 117/74 95 98.4 Laboratory Tests Test 06/16/25 16:09 White Blood Count 9.3 10^3/uL (4.4-10.8) Departure 1 Departure Time of Disposition: 17:41 Impression: Primary Impression: UTI (urinary tract infection) Qualified Codes: N30.01 - Acute cystitis with hematuria Disposition: HOME / SELF CARE / HOMELESS Condition: Stable e-Prescriptions Nitrofurantoin Monohydrate Mac (Macrobid) 100 Mg Cap 100 MG PO BID for 7 Days, #14 CAP Prov: DICK HUYNH 06/16/25 Discharged With: Self Critical Care Note Critical Care Time?: No Stability Stability form required: No Heart Score Heart Score: Heart Score Response (Comments) Value History N/A 0 EKG N/A 0 Age N/A 0 Risk Factors N/A 0 Troponin N/A 0 Total 0 I personally scribed for DICK HUYNH ([email or web address]) on 06/16/25 at 16:00. Electronically submitted by Vicente Ch ([email or web address]). DICK HUYNH Jun 16, 2025 16:00
[2025-06-16 16:20] LABS: Hematocrit 42.2 % (36.0-46.0); Hemoglobin 13.9 g/dL (12.2-16.2); Mean Corpuscular Hemoglobin 29.9 pg (28.0-32.0); Mean Corpuscular Volume 90.5 fL (80.0-100.0); Nucleated Red Blood Cells % 0.0 %
[2025-06-16 16:25] LABS: Chloride 101 mmol/L (98-107); Potassium 4.1 mmol/L (3.5-5.1); Sodium 139 mmol/L (136-145)
[2025-06-16 16:26] LABS: Anion Gap 13 (5-15); Carbon Dioxide 25 mmol/L (20-31)
[2025-06-16 16:30] LABS: Calcium 10.5 mg/dL (8.7-10.4)
[2025-06-16 16:31] LABS: BUN/Creatinine Ratio 15.9 (10.0-20.0); Blood Urea Nitrogen 14 mg/dL (9-23); Glucose 97 mg/dL (74-106)
[2025-06-16 17:28] LABS: Urine Protein, UAD 1+ (Negative)
[2025-06-16] MEDS ORDERED: NITR-87 PO (17:43)
[2025-06-16 18:07] VITALS: BP 115/75; PULSE 92; TEMP 98; O2SAT 96
--- NOTE | 2025-06-16 18:45 | ECG ---
[facility] Test Date: 2025-06-16 Test Time: 15:43:21 Pat Name: WU HERNANDEZ Department: ER Room: Gender: F Paraprofessional Interpreter: MARILIN : 1980 Requested By: DICK GUERRA* Order Number: [id number] Reading MD: Cameron Romero Measurements Intervals [place] Rate: 91 P: 73 [place]: 164 QRS: 40 QRSD: 89 T: 18 QT: 345 QTc: 425 Interpretive Statements Sinus rhythm Low voltage, precordial leads Baseline wander in lead(s) V2 Electronically Signed On 06-17-2025 17:25:41 PST by Cameron Romero Please click the below link to view image of tracing.
== END 2025-06-16 17:44 | disposition home or self-care (01) ==
LOC: ER 15:36
DX: N39.0 Urinary tract infection, site not specified (principal); R42 Dizziness and giddiness; M54.2 Cervicalgia; R51.9 Headache, unspecified; I10 Essential (primary) hypertension; E11.9 Type 2 diabetes mellitus without complications; Z79.84 Long term (current) use of oral hypoglycemic drugs; Z87.440 Personal history of urinary (tract) infections
CPT/HCPCS: 36415; 80048; 81001; 82947; 85025; 93005

== ENCOUNTER 2025-06-27 19:51 | Emergency (ER) | payer BC ==
[~2025-06-27] VITALS: Ht 162.6 cm; Wt 80.0 kg
[~2025-06-27 19:51] MED LIST changes: +NITR-87 PO
--- NOTE | 2025-06-27 20:57 | ED.PDOC ---
History of Present Illness HPI Comments 45 y/o obese F presents with spouse for c/c of nonradiating, diffused abdominal pain. Patient endorses on 2x days history of constant pain. She reports on associated multiple episodes of nausea and vomiting and generalized weakness that began today. Recent history of UTI 1.5x week ago. She reports on urine s till being cloudy. Denial of any bloody or bilious vomitus, diarrhea, constipation, or further acute symptoms. Chief Complaint: Abdominal Pain Time Seen by MD: 20:30 Primary Care Provider: EL Reviewed Notes: Nurses Notes, Medications, Allergies Allergies: Coded Allergies: NO KNOWN ALLERGIES (Unverified , 08/02/19) Home Meds Active Scripts Ondansetron HCl (Ondansetron Hydrochloride) 8 Mg Tab, 8 MG PO Q6HP PRN, #60 TAB Prov:JENNY BLOUNT MD 06/28/25 Famotidine (PEPCID TABLET) 20 Mg Tb, 1 TAB PO BID, #60 TAB 5 Refills Prov:JENNY BLOUNT MD 06/28/25 Nitrofurantoin Monohydrate Mac (Macrobid) 100 Mg Cap, 100 MG PO BID for 7 Days, #14 CAP Prov:DICK HUYNH 06/16/25 Metformin Hydrochloride (Metformin Hcl) 500 Mg Tab, 500 MG PO BID for 30 Days, MG Prov:GABE MAO MD 07/08/19 Hyoscyamine Sulfate (HYOSCYAMINE SULFATE ODT) 0.125 Mg Tab, 0.25 MG PO Q4HPRN PRN, #30 TAB Prov:JOEL ADLER MD 05/28/19 Information Source: Patient, Spouse Mode of Arrival: Wheelchair Severity: Moderate Timing: Days Duration: Since onset Prehospital treatment: None Past Medical History PAST MEDICAL HISTORY: DM, HTN, UTI'S Surgical History: Denies all surgeries 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 Family History Family History: Reviewed,noncontributory to illness, Unknown Social History Smoker: Non-Smoker Alcohol: Denies ETOH Use Drugs: Denies Drug Use Lives In: Home All Other Systems: Reviewed and Negative (As per HPI) Physical Exam General Appearance: Mild Distress, Obese HEENT: Normal ENT Inspection, Pharynx Normal, TMs Normal Neck: Full Range of Motion, Non-Tender, Normal, Normal Inspection Respiratory: Chest Non-Tender, Lungs Clear, No Accessory Muscle Use, No Respiratory Distress, Normal Breath Sounds Cardiovascular: No Edema, No JVD, No Murmur, No Gallop, Normal Peripheral Pulses, Regular Rate/Rhythm Breast Exam: Deferred Gastrointestinal: Diffuse (tenderness ), No Organomegaly, No Pulsatile Mass, Normal Bowel Sounds, Soft, Tenderness (diffused ) Genitalia: Deferred Pelvic: Deferred Rectal: Deferred Extremities: No calf tenderness, Normal capillary refill, Normal inspection, Normal range of motion, Non-tender, No pedal edema Musculoskeletal : Apperance: Normal Neurologic: Alert, 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 Was a procedure done?: No Differential Dx Considerations may include: gastritis, gastroenteritis, GERD, PUD, dehydration, UTI, electrolyte imbalance, among others X-Ray, Labs, Meds, VS Vital Signs Date Time Temp Pulse Resp B/P (MAP) Pulse Ox O2 Delivery O2 Flow Rate FiO2 06/27/25 23:25 16 06/27/25 23:24 98.1 100 16 147/67 (93) 100 98.1 06/27/25 22:58 100 16 147/67 06/27/25 21:38 Room Air* 0 21 06/27/25 21:33 104 18 160/80 06/27/25 21:24 98.6 104 18 160/80 (106) 97 98.6 06/27/25 19:55 98.3 100 20 164/79 100 98.3 Lab Test 06/28/25 01:26 06/27/25 21:02 Range/Units Urine Color Light-yellow Yellow Urine Clarity Clear Clear Urine pH 6.0 5.0-9.0 Urine Specific [place] 1.030 1.001-1.035 Urine Protein Trace H Negative Urine Ketones 4+ H Negative Urine Blood Negative Negative /uL Urine Nitrite 2+ H Negative Urine Bilirubin Negative Negative Urine Urobilinogen Normal Negative mg/dL Urine Leukocyte Esterase Negative Negative /uL Urine RBC 4 0 - 4 /hpf Urine Microscopic WBC 1 0-5 /HPF Urine Squamous Epithelial Cells Few <5 /hpf Urine Bacteria None seen None Seen /hpf Urine Hyaline Casts Few 0 - 2 /lpf Urine Mucus Few None Seen Urine Yeast (Budding) Occasional None Seen /hpf Urine Glucose 3+ H Normal mg/dL White Blood Count 8.2 4.4-10.8 10^3/uL Red Blood Count 4.40 4.0-5.20 10^6/uL Hemoglobin 12.8 12.2-16.2 g/dL Hematocrit 39.6 36.0-46.0 % Mean Corpuscular Volume 90.1 80.0-100.0 fL Mean Corpuscular Hemoglobin 29.2 28.0-32.0 pg Mean Corpuscular Hemoglobin Concent 32.4 32.0-36.0 g/dL Red Cell Distribution Width 13.9 11.8-14.3 % Platelet Count 234 140-450 10^3/uL Mean Platelet Volume 9.5 6.9-10.8 fL Neutrophils (%) (Auto) 82.5 H 37.0-80.0 % Lymphocytes (%) (Auto) 14.7 10.0-50.0 % Monocytes (%) (Auto) 2.5 0.0-12.0 % Eosinophils (%) (Auto) 0.0 0.0-7.0 % Basophils (%) (Auto) 0.3 0.0-2.0 % Neutrophils # (Auto) 6.8 1.6-8.6 10 ^3/uL Lymphocytes # (Auto) 1.2 0.4-5.4 10 ^3/uL Monocytes # (Auto) 0.2 0-1.3 10 ^3/uL Eosinophils # (Auto) 0 0-0.8 10 ^3/uL Basophils # (Auto) 0 0-0.2 10 ^3/uL Nucleated Red Blood Cells 0.0 % Sodium Level 139 136-145 mmol/L Potassium Level 3.8 3.5-5.1 mmol/L Chloride Level 102 98-107 mmol/L Carbon Dioxide Level 22 20-31 mmol/L Anion Gap 15 5-15 Blood Urea Nitrogen 14 9-23 mg/dL Creatinine 0.73 0.550-1.02 mg/dL Glomerular Filtration Rate Calc 103 >90 mL/min BUN/Creatinine Ratio 19.2 10.0-20.0 Serum Glucose 289 H 74-106 mg/dL Calcium Level 10.2 8.7-10.4 mg/dL Total Bilirubin 0.4 0.2-1.0 mg/dL Aspartate Amino Transferase (AST) 18 13-40 U/L Alanine Aminotransferase (ALT) 18 7-40 U/L Alkaline Phosphatase 82 46-116 U/L Total Protein 7.7 5.7-8.2 g/dL Albumin 4.6 3.2-4.8 g/dL Lipase 22 12-53 U/L Current Medications Medications (Trade) Dose Ordered Sig/Preet Route Start Time Stop Time Status Last Admin Ondansetron HCl (Zofran) 4 mg ONCE ONCE IV 06/27/25 20:45 06/27/25 20:46 DC 06/27/25 21:32 Hydromorphone HCl (Dilaudid Injection) 1 mg ONCE ONCE IV 06/27/25 20:45 06/27/25 20:46 DC 06/27/25 21:33 Sodium Chloride 1,000 ml @ 1,000 mls/hr Q1H ONCE IVB 06/27/25 20:45 06/27/25 21:44 DC 06/27/25 21:32 Time of 1ST Reevaluation: 21:00 Reevaluation 1ST: Unchanged Patient Education/Counseling: Diagnosis, Treatment Family Education/Counseling: Diagnosis, Treatment SEPSIS Sepsis Screen Date sepsis recognized/suspect: Jun 27, 2025 Time Sepsis recognized/suspect: 1957 Recent Procedure: No On Antibiotic Therapy: No Respiratory Rate >20: No Heart Rate >90: Yes Temp<36 C (96.8 F) or >38.3 C: No SBP <90 or MAP <65 mmHG: No New Acute Mental Status Change: No Is the patient on CPAP, BIPAP,: No Physician Orders Ct Ab Pel With Iv Con Only (06/27/25 20:43) Gallbladder (06/27/25 23:18) Vital Signs Date Time Temp Pulse Resp B/P (MAP) Pulse Ox O2 Delivery O2 Flow Rate FiO2 06/27/25 23:25 16 06/27/25 23:24 98.1 100 16 147/67 (93) 100 98.1 06/27/25 22:58 100 16 147/67 06/27/25 21:38 Room Air* 0 21 06/27/25 21:33 104 18 160/80 06/27/25 21:24 98.6 104 18 160/80 (106) 97 98.6 06/27/25 19:55 98.3 100 20 164/79 100 98.3 Laboratory Tests Test 06/27/25 21:02 White Blood Count 8.2 10^3/uL (4.4-10.8) Medications Medications Dose Ordered Sig/Preet Route Start Time Stop Time Status Last Admin Dose Admin Hydromorphone HCl 1 mg ONCE ONCE IV 06/27/25 20:45 06/27/25 20:46 DC 06/27/25 21:33 Ondansetron HCl 4 mg ONCE ONCE IV 06/27/25 20:45 06/27/25 20:46 DC 06/27/25 21:32 Sodium Chloride 1,000 ml @ 1,000 mls/hr Q1H ONCE IVB 06/27/25 20:45 06/27/25 21:44 DC 06/27/25 21:32 Departure 1 Departure Time of Disposition: 22:30 Impression: Primary Impression: Gastroparesis diabeticorum Disposition: HOME / SELF CARE / HOMELESS Condition: Stable e-Prescriptions Ondansetron HCl (Ondansetron Hydrochloride) 8 Mg Tab 8 MG PO Q6HP PRN, #60 TAB Prov: JENNY BLOUNT MD 06/28/25 Famotidine (PEPCID TABLET) 20 Mg Tb 1 TAB PO BID, #60 TAB 5 Refills Prov: JENNY BLOUNT MD 06/28/25 Discharged With: Self Critical Care Note Critical Care Time?: No Stability Stability form required: No Heart Score Heart Score: Heart Score Response (Comments) Value History N/A 0 EKG N/A 0 Age N/A 0 Risk Factors N/A 0 Troponin N/A 0 Total 0 I personally scribed for JENNY BLOUNT MD ([email or web address]) on 06/27/25 at 20:57. Electronically submitted by Deng Lara ([email or web address]). JENNY BLOUNT MD Jun 27, 2025 20:57
[2025-06-27 21:24] LABS: Hematocrit 39.6 % (36.0-46.0); Hemoglobin 12.8 g/dL (12.2-16.2); Mean Corpuscular Hemoglobin 29.2 pg (28.0-32.0); Mean Corpuscular Volume 90.1 fL (80.0-100.0); Nucleated Red Blood Cells % 0.0 %
[2025-06-27 21:31] LABS: Alanine Aminotransferase 18 U/L (7-40); Albumin 4.6 g/dL (3.2-4.8); Alkaline Phosphatase 82 U/L (46-116); Anion Gap 15 (5-15); BUN/Creatinine Ratio 19.2 (10.0-20.0); Blood Urea Nitrogen 14 mg/dL (9-23); Calcium 10.2 mg/dL (8.7-10.4); Carbon Dioxide 22 mmol/L (20-31); Chloride 102 mmol/L (98-107); Lipase 22 U/L (12-53); Potassium 3.8 mmol/L (3.5-5.1); Sodium 139 mmol/L (136-145); Total Protein 7.7 g/dL (5.7-8.2)
[2025-06-27 21:32] LABS: Bilirubin, Total 0.4 mg/dL (0.2-1.0)
[2025-06-27] MEDS: SODIUM CHLORIDE 0.9% 1,000 ML IVB ONE (21:32)
[2025-06-27] MEDS: ONDANSETRON HCL 4 MG/2 ML VIAL IV ONE (21:32)
[2025-06-27] MEDS: IOHEXOL 300 MG/ML 100ML BOTTLE IJ ONE (21:32)
[2025-06-27 21:33] LABS: Glucose 289 mg/dL (74-106)
[2025-06-27] MEDS: HYDROmorphone HCL 2 MG/ML VL/or syr IV ONE (21:33)
--- NOTE | 2025-06-27 22:58 | DVH ---
EXAM: CT CT AB PEL WITH IV CON ONLY HISTORY: abd pain COMPARISON STUDY: CT ABD PELVIS WO CONTRAST on DOS: 05/10/21 TECHNIQUE: A digital staff nurse image was obtained. During the uneventful, intravenous administration of contrast material, multislice data acquisition was obtained through the abdomen and pelvis. The data set was subsequently reconstructed into multiplanar reformats. RADIATION DOSE: CTDI vol 11.8 mGy. DLP 654.3 mGy.cm FINDINGS: Lungs: The lung bases are clear. Liver: There is low-attenuation within the liver adjacent to the falciform ligament.. Spleen: Unremarkable. Pancreas: Unremarkable. Gallbladder: The gallbladder is distended. Adrenals: Unremarkable Kidneys: Too small to characterize left renal lesion. No hydronephrosis. Pelvic Viscera: Unremarkable. Vasculature: Mild atherosclerotic aortoiliac calcification. Retroperitoneum: Unremarkable. Bowel: No bowel obstruction. Portions of the bowel are decompressed, limiting assessment. The appendix is normal. There are postsurgical changes of the stomach. Musculoskeletal: Unremarkable. Soft tissues: Unremarkable IMPRESSION: 1. Mild distention of the gallbladder. If clinically indicated, a right upper quadrant ultrasound may be beneficial in further assessment. 2. Low-attenuation about the falciform ligament, possibly referable to focal fat, though this may be further confirmed with MRI of the abdomen as clinically indicated. 3. Additional findings as detailed.
[2025-06-27 23:24] VITALS: BP 147/67; PULSE 100; TEMP 98.1; O2SAT 100
[2025-06-27 23:25] VITALS: RESP 16
--- NOTE | 2025-06-28 00:39 | DVH ---
EXAM: US GALLBLADDER HISTORY: RUQ pain COMPARISON: None TECHNIQUE: Right upper quadrant ultrasound was performed. FINDINGS: Limited evaluation. The liver measures 14.4 cm and demonstrates homogeneous echogenicity. There is hepatopetal flow. No intrahepatic biliary ductal dilatation is seen. There is no cholelithiasis. The gallbladder wall measures 3 mm. There is no sonographic Diaz sign. The common bile duct measures 5 mm. The pancreas is obscured. The right kidney is unremarkable without hydronephrosis, calculus, or mass. IMPRESSION: 1. No cholelithiasis or sonographic evidence of acute cholecystitis.
[2025-06-28] MEDS ORDERED: ONDA-180 PO (01:14)
[2025-06-28] MEDS ORDERED: FAMO20TA10 PO (01:14)
[2025-06-28 02:12] LABS: Urine Budding Yeast OCCASIONAL /hpf (None Seen); Urine Protein, UAD TRACE (Negative)
== END 2025-06-28 01:34 | disposition home or self-care (01) ==
LOC: ER 19:51
DX: E11.43 Type 2 diabetes mellitus with diabetic autonomic (poly)neuropathy (principal); K31.84 Gastroparesis; I10 Essential (primary) hypertension; E11.9 Type 2 diabetes mellitus without complications; Z79.84 Long term (current) use of oral hypoglycemic drugs; Z87.440 Personal history of urinary (tract) infections
CPT/HCPCS: 36415; 74177; 76705; 80053; 81001; 83690; 85025; 96361; 96374; 96375; 99285; J1171; J2405; J7030; Q9967